=== PATIENT | male | born 1985 | race African-American/Black ===

== ENCOUNTER 2016-12-11 08:18 | Observation (INO) | payer SELFPAY ==
[~2016-12-11] VITALS: Ht 185.4 cm; Wt 70.0 kg
[~2016-12-11 08:18] MED LIST: AMOX875 PO; DOXY100T PO; MMW SSP
[2016-12-11 08:24] VITALS: BP 123/58; PULSE 58; RESP 22; TEMP 98.3; O2SAT 98
--- NOTE | 2016-12-11 09:59 | PD ---
HPI Chief Complaint: GI Complaint Time Seen by Provider: 09:27 Travel History International Travel<30 days: No Contact w/Intl Traveler<30days: No Traveled to known affect area: No History of Present Illness HPI 31-year-old male complains of abdominal pain chest pain with nausea vomiting diarrhea. Patient states the symptoms started last night. Patient states that he started having epigastric abdominal pain burning pain with radiation to the substernal area since last night. Patient states that the pain has been intermittent. Patient states that he has intermittent nausea vomiting diarrhea since last night also. Patient denies any headache. Patient denies any coughing congestion. Patient denies any fever chills. Patient denies any dysuria or frequency. Patient denies history of CAD. Patient has history of recurrent abdominal pain in the past. Patient states that he was seen in emergency room in the past for abdominal pain. Patient was advised to see GI specialist for follow-up however has not done so. Patient's not on any routine medications. Patient state he drinks alcohol 3 times a week. Patient denies any illicit drug abuse. On a scale of 1-10 the pain is an 8. PFSH Past Medical History Diminished Hearing: No Social History Alcohol Use: Yes (Drinks 2 days per week/liquor/2 drinks. Last drink on Sun) Tobacco Use: No Substance Use: No Allergies-Medications (Allergen,Severity, Reaction): Coded Allergies: No Known Allergies (Verified , 09/26/15) Reported Meds & Prescriptions Reported Meds & Active Scripts Active Magic Mouthwash-Diphenhy Formula (Lidocaine/Diphenhydr/Alum/Mg/Simeth) Ml 5-10 Ml SSP 5 TIMES A DAY MAGIC MOUTHWASH CONTAINS 1/3 VISCOUS LIDOCAINE, 1/3 MAALOX, AND 1/3 BENADRYL. Amoxil (Amoxicillin) 875 Mg Tab 875 Mg PO BID 10 Days Doxycycline Hyclate 100 mg (Doxycycline Hyclate) 100 Mg Tab 100 Mg PO BID Review of Systems General / Constitutional: No: Fever Eyes: No: Visual changes HENT: No: Headaches Cardiovascular: No: Chest Pain or Discomfort Respiratory: No: Shortness of Breath Gastrointestinal: Positive: Nausea, Vomiting, Diarrhea, Abdominal Pain Genitourinary: No: Dysuria Musculoskeletal: No: Pain Skin: No Rash Neurologic: No: Weakness Psychiatric: No: Depression Endocrine: No: Polydipsia Hematologic/Lymphatic: No: Easy Bruising Physical Exam Narrative GENERAL: Well-nourished, well-developed patient. SKIN: Warm and dry. HEAD: Normocephalic. EYES: No scleral icterus. No injection or drainage. NECK: Supple, trachea midline. No JVD or lymphadenopathy. CARDIOVASCULAR: Regular rate and rhythm without murmurs, gallops, or rubs. RESPIRATORY: Breath sounds equal bilaterally. No accessory muscle use. GASTROINTESTINAL: Abdomen soft, nondistended. Patient has moderate tenderness on palpation epigastric area. No rebound tenderness. No mass. MUSCULOSKELETAL: No cyanosis, or edema. BACK: Nontender without obvious deformity. No CVA tenderness. Neurologic exam normal. Data Data Last Documented VS Vital Signs Date Time Temp Pulse Resp B/P Pulse Ox O2 Delivery O2 Flow Rate FiO2 12/11/16 09:38 16 97 Room Air 12/11/16 08:24 98.3 58 123/58 Orders Complete Blood Count With Diff (12/11/16 08:27) Comprehensive Metabolic Panel (12/11/16 08:27) Urinalysis - C+S If Indicated (12/11/16 08:27) Iv Access Insert/Monitor (12/11/16 08:27) Oxygen Administration (12/11/16 08:27) Oximetry (12/11/16 08:27) Lipase (12/11/16 08:27) Electrocardiogram (12/11/16 ) Creatine Kinase (Cpk) (12/11/16 09:48) Troponin I (12/11/16 09:48) Chest, Single Ap (12/11/16 09:48) Pantoprazole Inj (Protonix Inj) (12/11/16 10:00) Al-Mag Hy-Si 40-40-4 Mg/Ml Liq (Mag-Al P (12/11/16 10:00) Svnkf-Tchpby-Wtwdzn-Pb Liq ( Liq (12/11/16 10:00) Ct Abd/Pel W Iv Contrast(Rout) (12/11/16 09:51) Morphine Inj (Morphine Inj) (12/11/16 10:00) Ondansetron Inj (Zofran Inj) (12/11/16 10:00) Sodium Chlor 0.9% 1000 Ml Inj (Ns 1000 M (12/11/16 10:00) Iohexol 350 Inj (Omnipaque 350 Inj) (12/11/16 11:07) Labs Laboratory Tests Test 12/11/16 09:30 White Blood Count 13.4 TH/MM3 Red Blood Count 5.15 MIL/MM3 Hemoglobin 15.6 GM/DL Hematocrit 46.8 % Mean Corpuscular Volume 90.8 FL Mean Corpuscular Hemoglobin 30.3 PG Mean Corpuscular Hemoglobin 33.3 % Concent Red Cell Distribution Width 13.2 % Platelet Count 134 TH/MM3 Mean Platelet Volume 9.9 FL Neutrophils (%) (Auto) 94.7 % Lymphocytes (%) (Auto) 2.8 % Monocytes (%) (Auto) 2.3 % Eosinophils (%) (Auto) 0.0 % Basophils (%) (Auto) 0.2 % Neutrophils # (Auto) 12.7 TH/MM3 Lymphocytes # (Auto) 0.4 TH/MM3 Monocytes # (Auto) 0.3 TH/MM3 Eosinophils # (Auto) 0.0 TH/MM3 Basophils # (Auto) 0.0 TH/MM3 CBC Comment DIFF FINAL Differential Comment Sodium Level 145 MEQ/L Potassium Level 4.0 MEQ/L Chloride Level 109 MEQ/L Carbon Dioxide Level 24.9 MEQ/L Anion Gap 11 MEQ/L Blood Urea Nitrogen 16 MG/DL Creatinine 1.45 MG/DL Estimat Glomerular Filtration 69 ML/MIN Rate Random Glucose 141 MG/DL Calcium Level 9.4 MG/DL Total Bilirubin 0.5 MG/DL Aspartate Amino Transf 13 U/L (AST/SGOT) Alanine Aminotransferase 19 U/L (ALT/SGPT) Alkaline Phosphatase 68 U/L Total Creatine Kinase 213 U/L Troponin I LESS THAN 0.02 NG/ML Total Protein 8.3 GM/DL Albumin 4.6 GM/DL Lipase 51 U/L [facility] Medical Decision Making Medical Screen Exam Complete: Yes Emergency Medical Condition: Yes Interpretation(s) EKG shows sinus bradycardia rate 53. Nonspecific ST-T wave change. Last Impressions Abdomen/Pelvis CT 12/11/16 0951 Draft Impressions: Service Date/Time: Sunday, December 11, 2016 11:04 - CONCLUSION: 1. Questionable wall thickening versus nondistention of transverse colon. This could be related to a colitis in the right clinical setting. 2. Otherwise unremarkable CT abdomen/pelvis. Jean Marie Enriquez MD Chest X-Ray 2/21/17 0948 Signed Impressions: Service Date/Time: Sunday, December 11, 2016 10:06 - CONCLUSION: No acute disease. Jean Marie Enriquez MD 11:33 AM. CBC WBC 13.4. Platelet 134. 94 neutrophil. Creatinine 1.45. Cardiac enzymes are normal. Differential Diagnosis Differential diagnosis including gastritis, PUD, pancreatitis, cholecystitis, colitis, UTI, pyelonephritis, nephrolithiasis, angina, [place], PE, pneumothorax. Narrative Course 31-year-old male with epigastric pain with radiation to the substernal area, nausea vomiting diarrhea. History of similar symptoms in the past. Normal saline solution 1 L IV bolus. Protonix 40 mg IV. Maalox 30 cc by mouth. 10 cc by mouth. Morphine 2 mg IV. Zofran 4 mg IV. Levaquin 750 mg IV. Flagyl 500 mg IV. Diagnosis Primary Impression: Colitis Additional Impression: Renal insufficiency Quinton Spann MD Dec 11, 2016 09:59
[2016-12-11] MEDS ORDERED: ALUMINUM/MAGNESIUM/SIMETH 30 ML CUP PO ONE (10:00)
[2016-12-11] MEDS ORDERED: SODIUM CHLOR 0.9% 1000 ML INJ 1,000 ML IV ONE (10:00)
[2016-12-11] MEDS ORDERED: PANTOPRAZOLE SODIUM 40 MG VIAL IV PUSH ONE (10:00)
[2016-12-11] MEDS ORDERED: ONDANSETRON HCL 4 MG/2 ML VIAL IV PUSH ONE (10:00)
[2016-12-11] MEDS ORDERED: MORPHINE SULFATE 4 MG/ML INJ IV PUSH ONE (10:00)
[2016-12-11] MEDS ORDERED: ATROPINE/SCOPOLAM/HYOSCYAM/PB ELIXIR 10 ML CUP PO ONE (10:00)
[2016-12-11 10:11] LABS: AUTOMATED NEUTROPHIL # 12.7 TH/MM3 (1.8-7.7); BASOPHIL % 0.2 % (0.0-2.0); HEMATOCRIT 46.8 % (39.0-51.0); HEMO FLAGS DIFF FINAL; LYMPH % 2.8 % (9.0-44.0); LYMPHOCYTE # 0.4 TH/MM3 (1.0-4.8); MEAN CELL VOLUME 90.8 FL (80.0-100.0); MEAN CORPUSCULAR HEMOGLOBIN 30.3 PG (27.0-34.0); MEAN CORPUSCULAR HGB CONC 33.3 % (32.0-36.0); MONO % 2.3 % (0.0-8.0); NEUT % 94.7 % (16.0-70.0); PLATELET COUNT 134 TH/MM3 (150-450); RED BLOOD COUNT 5.15 MIL/MM3 (4.50-5.90); RED CELL DISTRIBUTION WIDTH 13.2 % (11.6-17.2); WHITE BLOOD COUNT 13.4 TH/MM3 (4.0-11.0)
[2016-12-11 10:27] LABS: ALT (GPT) 19 U/L (12-78); ANION GAP 11 MEQ/L (5-15); AST (GOT) 13 U/L (15-37); BICARBONATE 24.9 MEQ/L (21.0-32.0); BLOOD UREA NITROGEN 16 MG/DL (7-18); CHLORIDE 109 MEQ/L (98-107); GLOMERULAR FILTRATION RATE 69 ML/MIN (>89); SODIUM (NA) 145 MEQ/L (136-145)
--- NOTE | 2016-12-11 10:27 | RADRPT ---
EXAM DATE/TIME: 12/11/2016 10:06 [facility] COMPARISON: CHEST SINGLE AP, January 23, 2013, 14:24. INDICATIONS : Chest pain. Vomiting. MEDICAL HISTORY : None. SURGICAL HISTORY : None. ENCOUNTER: Initial ACUITY: 1 day PAIN SCORE: 10/10 LOCATION: Bilateral chest FINDINGS: A single view of the chest demonstrates the lungs to be symmetrically aerated without evidence of mas s, infiltrate or effusion. The cardiomediastinal contours are unremarkable. Osseous structures are intact. CONCLUSION: No acute disease. Jean Marie Enriquez MD on December 11, 2016 at 10:25 Board Certified Radiologist. This report was verified electronically.
[2016-12-11 10:30] LABS: ALKALINE PHOSPHATASE 68 U/L (45-117); CREATINE KINASE 213 U/L (39-308); TOTAL BILIRUBIN ADULT 0.5 MG/DL (0.2-1.0)
[2016-12-11] MEDS ORDERED: IOHEXOL 350 MG/ML 10 ML VIAL (for RAD DIAG) IV ONE (11:07)
--- NOTE | 2016-12-11 11:22 | RADRPT ---
EXAM DATE/TIME: 12/11/2016 11:04 [facility] COMPARISON: No previous studies available for comparison. INDICATIONS : Epigastric pain with nausea and vomiting. IV CONTRAST: 92 cc Omnipaque 350 (iohexol) IV ORAL CONTRAST: No oral contrast ingested. RADIATION DOSE: 4.56 CTDIvol (mGy) MEDICAL HISTORY : None SURGICAL HISTORY : None. ENCOUNTER: Initial ACUITY: 1 day PAIN SCALE: 5/10 LOCATION: Bilateral upper quadrant TECHNIQUE: Volumetric scanning of the abdomen and pelvis was performed. Using automated exposure control and ad justment of the mA and/or kV according to patient size, radiation dose was kept as low as reasonably achievable to obtain optimal diagnostic quality images. FINDINGS: LOWER LUNGS: The visualized lower lungs are clear. LIVER: Homogeneous density without lesion. There is no dilation of the biliary tree. No calcified gallston es. SPLEEN: Normal size without lesion. PANCREAS: Within normal limits. KIDNEYS: Normal in size and shape. There is no mass, stone or hydronephrosis. ADRENAL GLANDS: Within normal limits. VASCULAR: There is no aortic aneurysm. BOWEL/MESENTERY: Questionable wall thickening versus nondistended transverse colon.. There is no free intraperitoneal air or fluid. ABDOMINAL WALL: Within normal limits. RETROPERITONEUM: There is no lymphadenopathy. BLADDER: No wall thickening or mass. REPRODUCTIVE: Within normal limits. INGUINAL: There is no lymphadenopathy or hernia. MUSCULOSKELETAL: Within normal limits for patient age. CONCLUSION: 1. Questionable wall thickening versus nondistention of transverse colon. This could be related to a colitis in the right clinical setting. 2. Otherwise unremarkable CT abdomen/pelvis. Jean Marie Enriquez MD on December 11, 2016 at 11:15 Board Certified Radiologist. This report was verified electronically.
[2016-12-11] MEDS ORDERED: metroNIDAZOLE 500 MG INJ 100 ML IV ONE (11:45)
[2016-12-11] MEDS ORDERED: LEVOFLOXACIN 750 MG PREMIX INJ 150 ML IV ONE (11:45)
--- NOTE | 2016-12-11 11:56 | HHI.HP ---
HPI Service Family Medicine Primary Care Physician No Primary Care Physician Admission Diagnosis colitis. Renal insufficiency. Diagnoses: International Travel<30 Days: No Contact w/Intl Traveler<30days: No Known Affected Area: No History of Present Illness Patient is a 31-year-old male with no significant past medical history that presents to the [facility] ED with a 1 day history of nausea, vomiting, diarrhea, and abdominal pain. His last meal was grilled chicken nachos which he ate around 2-3 PM yesterday 12/10. The patient denies eating any strange foods or foods that he has not eaten before. He describes the stomach pain as 8-10/10 sharp, intermittent, pain located in his mid-abdomen. He also endorses tightness across his mid chest. The patient vomited up to 20 times yesterday nonbloody, green, sometimes clear with small amount of mucus and had 10-15 episodes of diarrhea which she described as green, and nonbloody. He also had chills, sweats, runny nose but denies headache, fever, dysuria, cough. He denies recent international travel but this was in [place] and returned on Saturday night. He states that he drank bottled water most of the time. He lives with his brother and does not have any sick contacts, no pets. He has not had a flu shot. (Jodie Pratt MD R1) Review of Systems Constitutional: COMPLAINS OF: Chills, DENIES: Fever Ears, nose, mouth, throat: COMPLAINS OF: Running Nose Respiratory: COMPLAINS OF: Shortness of breath, DENIES: Cough Cardiovascular: COMPLAINS OF: Chest pain (tightness), DENIES: Lower Extremity Edema Gastrointestinal: COMPLAINS OF: Abdominal pain, Diarrhea, Nausea, Vomiting, DENIES: Bloody stools Genitourinary: DENIES: Urinary frequency, Dysuria Musculoskeletal: DENIES: Muscle aches Integumentary: DENIES: Rash Neurologic: DENIES: Headache (Jodie Pratt MD R1) Past Family Social History Past Medical History None Past Surgical History None Reported Medications None (Jodie Pratt MD R1) Allergies: Coded Allergies: No Known Allergies (Verified , 09/26/15) Family History Sister has IBS Mom's sisters have HTN Social History -Lives with brother, no recent sick contacts, no pets -Smokes half pack per day for 18 years -Drinks a cup of Vodka twice a week -Smokes marijuana daily (Eko,Jodie U R1) Physical Exam Vital Signs Vital Signs Date Time Temp Pulse Resp B/P Pulse Ox O2 Delivery O2 Flow Rate FiO2 12/11/16 09:38 16 97 Room Air 12/11/16 08:24 98.3 58 22 123/58 98 Physical Exam GENERAL: This is a well-nourished, well-developed patient, appears uncomfortable SKIN: No rashes, ecchymoses or lesions. Cool and dry. HEAD: Atraumatic. Normocephalic. No temporal or scalp tenderness. EYES: Pupils equal round and reactive. Extraocular motions intact. No scleral icterus. No injection or drainage. ENT: Gold-plated teeth. Nose without bleeding, purulent drainage or septal hematoma. White coating on lips. Dry mucous membranes. Throat without erythema, tonsillar hypertrophy or exudate. Uvula midline. Airway patent. NECK: Trachea midline. No JVD or lymphadenopathy. Supple, nontender, no meningeal signs. CARDIOVASCULAR: Bradycardic rate and rhythm without murmurs, gallops, or rubs. RESPIRATORY: Clear to auscultation. Breath sounds equal bilaterally. No wheezes , rales, or rhonchi. GASTROINTESTINAL: Abdomen soft, non-tender to palpation, nondistended. No hepato -splenomegaly, or palpable masses. No guarding. MUSCULOSKELETAL: Extremities without clubbing, cyanosis, or edema. No joint tenderness, effusion, or edema noted. No calf tenderness. . NEUROLOGICAL: Sleepy but arousable. Cranial nerves grossly intact. Motor and sensory grossly within normal limits. Five out of 5 muscle strength in all muscle groups. Normal speech. Laboratory Laboratory Tests Test 12/11/16 09:30 White Blood Count 13.4 Red Blood Count 5.15 Hemoglobin 15.6 Hematocrit 46.8 Mean Corpuscular Volume 90.8 Mean Corpuscular Hemoglobin 30.3 Mean Corpuscular Hemoglobin 33.3 Concent Red Cell Distribution Width 13.2 Platelet Count 134 Mean Platelet Volume 9.9 Neutrophils (%) (Auto) 94.7 Lymphocytes (%) (Auto) 2.8 Monocytes (%) (Auto) 2.3 Eosinophils (%) (Auto) 0.0 Basophils (%) (Auto) 0.2 Neutrophils # (Auto) 12.7 Lymphocytes # (Auto) 0.4 Monocytes # (Auto) 0.3 Eosinophils # (Auto) 0.0 Basophils # (Auto) 0.0 CBC Comment DIFF FINAL Differential Comment Sodium Level 145 Potassium Level 4.0 Chloride Level 109 Carbon Dioxide Level 24.9 Anion Gap 11 Blood Urea Nitrogen 16 Creatinine 1.45 Estimat Glomerular Filtration 69 Rate Random Glucose 141 Calcium Level 9.4 Total Bilirubin 0.5 Aspartate Amino Transf 13 (AST/SGOT) Alanine Aminotransferase 19 (ALT/SGPT) Alkaline Phosphatase 68 Total Creatine Kinase 213 Troponin I LESS THAN 0.02 Total Protein 8.3 Albumin 4.6 Lipase 51 (Jodie Pratt MD R1) Result Diagram: 12/11/1692912/11/16929 Imaging Last Impressions Abdomen/Pelvis CT 12/11/16950 Signed Impressions: Service Date/Time: Sunday, December 11, 2016 11:04 - CONCLUSION: 1. Questionable wall thickening versus nondistention of transverse colon. This could be related to a colitis in the right clinical setting. 2. Otherwise unremarkable CT abdomen/pelvis. Jean Marie Enriquez MD - Chest X-Ray 12/11/16947 Signed Impressions: Service Date/Time: Sunday, December 11, 2016 10:06 - CONCLUSION: No acute disease. Jean Marie Enriquez MD Course In the ED, the patient received 1 L normal saline IV bolus, Protonix 40 mg IV, Maalox 30 mL by mouth, 10 mL by mouth, morphine 2 mg IV, Zofran 4 mg IV. He was also treated with one dose of Levaquin 70 mg IV and Flagyl 500 mg IV. Chest x-ray and CT abdomen and pelvis with contrast were performed. (Jodie Pratt MD R1) Assessment and Plan Assessment and Plan 31-year-old male with no significant past medical history presents to the [facility] ED with recurrent abdominal pain, nausea, vomiting, and diarrhea of one day duration. Differential diagnosis includes gastroenteritis, pancreatitis, cholecystitis, UTI, peptic ulcer disease, ACS, and inflammatory bowel disease. CT abdomen and pelvis performed in the ED shows questionable wall thickening versus nondistention of transverse colon, which is suspicious for colitis. The patient will be admitted to the family medicine team on observation for rehydration and treatment with antibiotics. Code Status Full code Discussed Condition With Seen and examined with Dr. De Leon, PGY 2. Will discuss with Dr. Tierney. (Jodie Pratt MD R1) Problem List: (1) Gastroenteritis and colitis Status: Acute Plan: -Patient reports abdominal pain of one day duration with multiple episodes of nausea vomiting and diarrhea -CT abdomen/pelvis shows questionable wall thickening of the transverse colon -GI consulted - appreciate recommendations -WBC 13.4 on admission with 94.7% neutrophils -Electrolytes within normal limits except for elevated chloride of 109 -Lipase within normal limits at 51, most likely not pancreatitis -Chest x-ray within normal limits -ACS rule out with troponin <0.02 and EKG showing sinus bradycardia, possible LVH, with nonspecific ST-T wave abnormality -Will repeat troponin 1 and EKG 1 in 6 hours -Urinalysis and reflex cultures pending -Stool studies pending -Celiac antibodies, DEEJAY pending -Ciprofloxacin 400 mg IV Q4 hours, received one dose - DAY 1, started on -Flagyl 500 mg IV Q6 hours, received one dose - DAY 1, started on 12/11/16 -Protonix 40 mg by mouth daily -Mackenzie-Colace one tablet twice a day scheduled -Tylenol 650 mg Q4h PRN pain 1-10 of fever greater than 101F -Pain control with morphine 2 mg IV push every 3 hours when necessary -Zofran 4 mg IV Q6h PRN nausea/vomiting -OOB as tolerated -Monitor I's and O's every shift -Vital signs every 4 hours (2) Renal insufficiency Status: Acute Plan: On admission creatinine elevated to 1.45 -Baseline creatinine unknown -SAHRA likely from dehydration due to multiple episodes of vomiting and diarrhea -Continue fluids as detailed below - expected to improve with fluid rehydration -Urinalysis pending -If renal function does not improve with fluids, consider renal ultrasound and nephrology consult (3) FEN/DVT PPX/GI PPX Status: Acute Plan: Fluids: NS @130 mls/hr Electrolytes: Will monitor and replace as needed Nutrition: Clear liquid diet; nothing by mouth at midnight pending GI DVT Prophylaxis: Bilateral SCDs GI Prophylaxis: Protonix 40 mg by mouth daily AM Labs: CBC, CMP (Jodie Pratt MD R1) Jodie Pratt MD R1 Dec 11, 2016 11:56 Rocio Tierney MD Dec 12, 2016 15:09
[2016-12-11 12:18] VITALS: BP 106/52; PULSE 50; RESP 24; O2SAT 96
[2016-12-11] MEDS ORDERED: ACETAMINOPHEN 325 MG TAB PO PRN (12:30)
[2016-12-11] MEDS ORDERED: NALOXONE HCL 0.4 MG/ML AMP IV PRN (12:30)
[2016-12-11] MEDS ORDERED: SODIUM CHLORIDE 0.9% FLUSH 5 ML FLUSH FLUSH PRN (12:30)
[2016-12-11] MEDS: ONDANSETRON HCL 4 MG/2 ML VIAL IVP PRN ×2 (13:59→18:00)
[2016-12-11] MEDS: SODIUM CHLOR 0.9% 1000 ML INJ 1,000 ML IV SCH ×2 (15:12→23:20)
[2016-12-11 15:41] VITALS: BP 115/55; PULSE 65; RESP 16; TEMP 98; O2SAT 98
--- NOTE | 2016-12-11 16:11 | PD.CONS ---
HPI History of Present Illness This is a 31 year old AA male with out significant past medical history who presents to the ED with one day history of severe symptoms of diarrhea, intractable vomiting, and abd pain. states that he started having epigastric/ mid abdominal pain burning pain with radiation to the substernal area since last night, 8-07/30 sharp, intermittent. He reports associated heart burn. Patient reports about 20 episodes of diarrhea with some mucous at times and vomiting, no hematochezia or hematemesis, the emesis, is green, sometimes clear liquid. Patient denies sick contact, suspicious foods, or internation travel, but he was in [place] and returned on Saturday night. His last meal was grilled chicken and nachos which he ate yesterday afternoon. The patient reports chills, and sweats. He had similar episode in the past and was advised to f/u with GI but he never did. States episodes usually last for few days. He denies family history of colon cancer or IBD. He drinks twice a week, smokes marijuana daily . CT done and that revealed Questionable wall thickening versus nondistention of transverse colon. This could be related to a colitis in the right clinical setting. Stool studies ordered and pending, was started on Cipro and Flagyl. patient never had EGD/colonoscopy PFSH Past Medical History None Past Surgical History None Coded Allergies: No Known Allergies (Verified , 09/26/15) Medications Current Medications Medications (Trade) Dose Ordered Sig/Ninoska Route Start Time Stop Time Status Last Admin (NS 1000 ml Inj) 1,000 ml @ 130 mls/hr Q7H42M IV 12/11/16 12:29 12/11/16 15:12 (NS Flush) 2 ml UNSCH PRN FLUSH 12/11/16 12:30 (NS Flush) 2 ml BID FLUSH 12/11/16 21:00 (Tylenol) 650 mg Q4H PRN PO 12/11/16 12:30 (Zofran Inj) 4 mg Q6H PRN IVP 12/11/16 12:30 12/11/16 13:59 Naloxone HCl 0.4 mg 0.4 mg UNSCH PRN IV 12/11/16 12:30 Ciprofloxacin/ Dextrose 200 ml @ 200 mls/hr Q12H IV 12/11/16 22:00 (Flagyl 500 Mg Inj) 100 ml @ 100 mls/hr Q6H IV 12/11/16 18:00 (Morphine Inj) 2 mg Q3H PRN IV PUSH 12/11/16 12:45 (Protonix Inj) 40 mg Q24H IV PUSH 12/12/16 10:00 Family History No family history of colon cancer, or IBD Sister has IBS Social History -Smokes half pack per day for 18 years -Drinks a cup of Vodka twice a week -Smokes marijuana daily Review of Systems Constitutional: COMPLAINS OF: Diaphoretic episodes, Chills, DENIES: Fever, Night Sweats Endocrine: DENIES: Polyuria Eyes: DENIES: Double Vision Ears, nose, mouth, throat: DENIES: Hoarseness Respiratory: DENIES: Shortness of breath Cardiovascular: DENIES: Lower Extremity Edema Gastrointestinal: COMPLAINS OF: Abdominal pain, Diarrhea, Nausea, Vomiting, Heartburn, DENIES: Black stools, Bloody stools, Constipation, Difficulty Swallowing, Anorexia, Odynophagia, Swelling of Abdomen, Hematemesis Genitourinary: DENIES: Hematuria Musculoskeletal: DENIES: Neck pain Integumentary: DENIES: Jaundice Hematologic/lymphatic: DENIES: Bruising Immunologic/allergic: DENIES: Eczema Neurologic: DENIES: Abnormal gait Psychiatric: DENIES: Anxiety GI Exam Vitals I&O Vital Signs Date Time Temp Pulse Resp B/P Pulse Ox O2 Delivery O2 Flow Rate FiO2 12/11/16 15:41 98.0 65 16 115/55 98 12/11/16 12:18 50 24 106/52 96 Room Air 12/11/16 12:16 24 96 Room Air 12/11/16 09:38 16 97 Room Air 12/11/16 08:24 98.3 58 22 123/58 98 Imaging Last Impressions Abdomen/Pelvis CT 12/11/16 0951 Signed Impressions: Service Date/Time: Sunday, December 11, 2016 11:04 - CONCLUSION: 1. Questionable wall thickening versus nondistention of transverse colon. This could be related to a colitis in the right clinical setting. 2. Otherwise unremarkable CT abdomen/pelvis. Jean Marie Enriquez MD Chest X-Ray 12/11/16 0948 Signed Impressions: Service Date/Time: Sunday, December 11, 2016 10:06 - CONCLUSION: No acute disease. Jean Marie Enriquez MD Laboratory Test 12/11/16 09:30 White Blood Count 13.4 TH/MM3 Red Blood Count 5.15 MIL/MM3 Hemoglobin 15.6 GM/DL Hematocrit 46.8 % Mean Corpuscular Volume 90.8 FL Mean Corpuscular Hemoglobin 30.3 PG Mean Corpuscular Hemoglobin 33.3 % Concent Red Cell Distribution Width 13.2 % Platelet Count 134 TH/MM3 Mean Platelet Volume 9.9 FL Neutrophils (%) (Auto) 94.7 % Lymphocytes (%) (Auto) 2.8 % Monocytes (%) (Auto) 2.3 % Eosinophils (%) (Auto) 0.0 % Basophils (%) (Auto) 0.2 % Neutrophils # (Auto) 12.7 TH/MM3 Lymphocytes # (Auto) 0.4 TH/MM3 Monocytes # (Auto) 0.3 TH/MM3 Eosinophils # (Auto) 0.0 TH/MM3 Basophils # (Auto) 0.0 TH/MM3 CBC Comment DIFF FINAL Differential Comment Sodium Level 145 MEQ/L Potassium Level 4.0 MEQ/L Chloride Level 109 MEQ/L Carbon Dioxide Level 24.9 MEQ/L Anion Gap 11 MEQ/L Blood Urea Nitrogen 16 MG/DL Creatinine 1.45 MG/DL Estimat Glomerular Filtration 69 ML/MIN Rate Random Glucose 141 MG/DL Calcium Level 9.4 MG/DL Total Bilirubin 0.5 MG/DL Aspartate Amino Transf 13 U/L (AST/SGOT) Alanine Aminotransferase 19 U/L (ALT/SGPT) Alkaline Phosphatase 68 U/L Total Creatine Kinase 213 U/L Troponin I LESS THAN 0.02 NG/ML Total Protein 8.3 GM/DL Albumin 4.6 GM/DL Lipase 51 U/L Physical Examination HEENT: normocephalic; atraumatic; no jaundice. NECK: Neck is supple, no JVD, no lymphadenopathy. CHEST: Chest is clear to auscultation and percussion. CARDIAC: Regular rate and rhythm with no murmur gallop or rubs. ABDOMEN: Soft, nondistended, diffused tenderness ; no hepatosplenomegaly; bowel sounds are present in all four quadrants. EXTREMITIES: No clubbing, cyanosis, or edema. SKIN: Normal; no rash; no jaundice. CLINICAL RN LIAISON: No focal deficits; alert and oriented times three. Assessment and Plan Plan - Intractable nausea/vomiting, abd pain and diarrhea X one day- Ct suggesting colitis, no previous EGD/colonoscopy, stools studies pending, LFTs, lipase normal, differential diagnosis includes IBD, gastritis, infectious colitis, but other etiology can't be excluded Started on Cipro and Flagyl and PPI, no more diarrhea or vomiting since arrival - Leukocytosis- WBC 13.4, afebrile, abx - Marijuana use, could have a contribution - acute renal failure- dehydration Plan: - Clear liquids - EGD/colonoscopy in am - Golytely today - Await stool studies - Cont Cipro and Flagyl - Cont PPI - Marijuana cessation - Further recommendation to follow based on results above - Patient seen and examined by Dr. Malhotra and myself and this note is written on his behalf. Edda Mancuso Dec 11, 2016 16:11
[2016-12-11] MEDS ORDERED: PEG (High)/E-LYTE SOLN 4000 ML BTL PO ONE (16:15)
[2016-12-11] MEDS: metroNIDAZOLE 500 MG INJ 100 ML IV SCH ×2 (17:11→23:21)
--- NOTE | 2016-12-11 17:16 | HHI.FPPN ---
Subjective Subjective Patient seen and examined. Case reviewed and discussed Please refer to resident H&P for further details regarding HPI, ROS, PMH, SurgHx , FH and SocHx In summary, patient is a 31yoM presenting with intractable n/v/d. He reports onset was last night. Vomiting and diarrhea started at the same time. Patient reports about 20 episodes of both. No blood. Hospital Objective Objective Last Impressions Abdomen/Pelvis CT 12/11/16 0951 Signed Impressions: Service Date/Time: Sunday, December 11, 2016 11:04 - CONCLUSION: 1. Questionable wall thickening versus nondistention of transverse colon. This could be related to a colitis in the right clinical setting. 2. Otherwise unremarkable CT abdomen/pelvis. Jean Marie Enriquez MD Chest X-Ray 12/11/1648 Signed Impressions: Service Date/Time: Sunday, December 11, 2016 10:06 - CONCLUSION: No acute disease. Jean Marie Enriquez MD Laboratory Tests - Abnormals Test 12/11/16 09:30 White Blood Count 13.4 TH/MM3 Platelet Count 134 TH/MM3 Neutrophils (%) (Auto) 94.7 % Lymphocytes (%) (Auto) 2.8 % Neutrophils # (Auto) 12.7 TH/MM3 Lymphocytes # (Auto) 0.4 TH/MM3 Chloride Level 109 MEQ/L Creatinine 1.45 MG/DL Estimat Glomerular Filtration 69 ML/MIN Rate Random Glucose 141 MG/DL Aspartate Amino Transf 13 U/L (AST/SGOT) Troponin I LESS THAN 0.02 NG/ML Total Protein 8.3 GM/DL Lipase 51 U/L Vital Signs 12/11/16 12/11/16 12/11/16 12/11/16 08:24 09:38 12:16 12:18 Temp 98.3 Pulse 58 50 Resp 22 16 24 24 B/P 123/58 106/52 Pulse Ox 98 97 96 96 O2 Delivery Room Air Room Air Room Air 12/11/16 15:41 Temp 98.0 Pulse 65 Resp 16 B/P 115/55 Pulse Ox 98 Physical exam GENERAL: AAM, NAD, resting in bed. SKIN: Warm and dry. No rashes HEAD: Normocephalic. AT EYES: No scleral icterus. No injection or drainage. NECK: Supple, trachea midline. No JVD or lymphadenopathy. CARDIOVASCULAR: Regular rate and rhythm without murmurs, gallops, or rubs. RESPIRATORY: Breath sounds equal bilaterally. No accessory muscle use. GASTROINTESTINAL: Abdomen soft, non-tender, nondistended. No rebound, guarding. Normal active BS MUSCULOSKELETAL: No cyanosis, or edema. No calf tenderness. BACK: Nontender without obvious deformity. No CVA tenderness. NEURO: Awake and alert. Normal speech. CN in tact. Assessment Assessment 31yoM admitted with: Intractable diarrhea, nausea, vomiting URI symptoms Leukocytosis Acute renal insufficiency PLAN PLAN IVF Stool studies CDIFF DEEJAY Celiac antibodies Zofran GI consultation Patient seen and examined. Case reviewed and discussed Agree with plan of care as discussed with me and documented in the resident note. Rocio Tierney MD Dec 11, 2016 17:16
[2016-12-11] MEDS: MORPHINE SULFATE 4 MG/ML INJ IV PUSH PRN ×3 (18:00→21:00)
[2016-12-11] MEDS: SODIUM CHLORIDE 0.9% FLUSH 5 ML FLUSH FLUSH SCH (21:00)
[2016-12-11 21:02] VITALS: BP 105/51; PULSE 52; RESP 18; TEMP 98.8; O2SAT 98
[2016-12-11 21:13] VITALS: BP 162/95; PULSE 87; RESP 18; TEMP 98.4; O2SAT 98
[2016-12-11] MEDS: CIPROFLOXACIN 400 MG PREMIX 200 ML IV SCH (21:38)
[2016-12-12] VITALS: BP 128/68; PULSE 68; RESP 18; TEMP 97.8; O2SAT 99
[2016-12-12] MEDS: SODIUM CHLOR 0.9% 1000 ML INJ 1,000 ML IV SCH ×3 (03:53→19:17)
[2016-12-12 04:52] VITALS: BP 116/60; PULSE 87; RESP 18; TEMP 98.7; O2SAT 98
[2016-12-12] MEDS: ONDANSETRON HCL 4 MG/2 ML VIAL IVP PRN (05:18)
[2016-12-12] MEDS: metroNIDAZOLE 500 MG INJ 100 ML IV SCH ×4 (05:18→23:41)
[2016-12-12 05:25] LABS: AUTOMATED NEUTROPHIL # 10.3 TH/MM3 (1.8-7.7); BASOPHIL % 0.2 % (0.0-2.0); EOSINOPHIL % 0.1 % (0.0-4.0); HEMATOCRIT 42.8 % (39.0-51.0); HEMO FLAGS DIFF FINAL; LYMPH % 8.4 % (9.0-44.0); MEAN CELL VOLUME 89.8 FL (80.0-100.0); MEAN CORPUSCULAR HEMOGLOBIN 30.7 PG (27.0-34.0); MEAN CORPUSCULAR HGB CONC 34.2 % (32.0-36.0); MONO % 5.4 % (0.0-8.0); NEUT % 85.9 % (16.0-70.0); PLATELET COUNT 132 TH/MM3 (150-450); RED BLOOD COUNT 4.77 MIL/MM3 (4.50-5.90); RED CELL DISTRIBUTION WIDTH 13.2 % (11.6-17.2)
[2016-12-12 05:57] LABS: BICARBONATE 28.9 MEQ/L (21.0-32.0); POTASSIUM 3.7 MEQ/L (3.5-5.1)
[2016-12-12 07:44] VITALS: BP 118/68; PULSE 50; RESP 18; TEMP 97.7; O2SAT 99
[2016-12-12] MEDS ORDERED: PANTOPRAZOLE SOD 40 MG DELAYED RELEASE TAB PO SCH (09:00)
[2016-12-12] MEDS ORDERED: DOCUSATE SODIUM 50 MG/SENNA 8.6 MG TAB PO SCH (09:00)
[2016-12-12] MEDS: SODIUM CHLORIDE 0.9% FLUSH 5 ML FLUSH FLUSH SCH ×2 (09:00→20:37)
[2016-12-12] MEDS: PANTOPRAZOLE SODIUM 40 MG VIAL IV PUSH SCH (09:35)
[2016-12-12] MEDS: CIPROFLOXACIN 400 MG PREMIX 200 ML IV SCH ×2 (09:35→21:20)
[2016-12-12] MEDS: MORPHINE SULFATE 4 MG/ML INJ IV PUSH PRN ×3 (09:42→21:41)
[2016-12-12] MEDS ORDERED: MAGNESIUM CITRATE SOLN 300 ML BTL PO ONE (09:45)
--- NOTE | 2016-12-12 12:59 | HHI.FPPN ---
Subjective Remarks Patient states that he feels 40% better today. He had 4 episodes of vomiting and 4 episodes of diarrhea overnight and in the morning. His abdominal pain is now a 5/10. (Jodie Pratt MD R1) Objective Vitals Vital Signs Date Time Temp Pulse Resp B/P Pulse Ox O2 Delivery O2 Flow Rate FiO2 12/12/16 09:47 16 12/12/16 07:44 97.7 50 18 118/68 99 12/12/16 04:52 98.7 87 18 116/60 98 12/12/16 00:00 97.8 68 18 128/68 99 12/11/16 21:13 98.4 87 18 162/95 98 12/11/16 21:02 98.8 52 18 105/51 98 12/11/16 15:41 98.0 65 16 115/55 98 I/O 12/11/16 12/11/16 12/11/16 12/12/16 12/12/16 12/12/16 07:00 15:00 23:00 07:00 15:00 23:00 Intake Total 480 ml Balance 480 ml Intake Oral 480 ml # Voids 2 # Bowel Movements 1 (Jodie Pratt MD R1) Result Diagram: 12/12/16 0455 12/12/16 0455 Imaging Last Impressions Abdomen/Pelvis CT 12/11/16950 Signed Impressions: Service Date/Time: Sunday, December 11, 2016 11:04 - CONCLUSION: 1. Questionable wall thickening versus nondistention of transverse colon. This could be related to a colitis in the right clinical setting. 2. Otherwise unremarkable CT abdomen/pelvis. Jean Marie Enriquez MD Chest X-Ray 12/11/1625 Signed Impressions: Service Date/Time: Sunday, December 11, 2016 10:06 - CONCLUSION: No acute disease. Jean Marie Enriquez MD Objective Remarks GENERAL: This is a well-nourished, well-developed patient, appears uncomfortable SKIN: No rashes, ecchymoses or lesions. Cool and dry. HEAD: Atraumatic. Normocephalic. No temporal or scalp tenderness. EYES: Pupils equal round and reactive. Extraocular motions intact. No scleral icterus. No injection or drainage. ENT: Gold-plated teeth. Nose without bleeding, purulent drainage or septal hematoma. Throat without erythema, tonsillar hypertrophy or exudate. Uvula midline. Airway patent. NECK: Trachea midline. No JVD or lymphadenopathy. Supple, nontender, no meningeal signs. CARDIOVASCULAR: Bradycardic rate and rhythm without murmurs, gallops, or rubs. RESPIRATORY: Clear to auscultation. Breath sounds equal bilaterally. No wheezes , rales, or rhonchi. GASTROINTESTINAL: Abdomen soft, non-tender to palpation, nondistended. No hepato -splenomegaly, or palpable masses. No guarding. MUSCULOSKELETAL: Extremities without clubbing, cyanosis, or edema. No joint tenderness, effusion, or edema noted. No calf tenderness. . NEUROLOGICAL: Cranial nerves grossly intact. Motor and sensory grossly within normal limits. Five out of 5 muscle strength in all muscle groups. Normal speech. (Jodie Pratt MD R1) A/P Assessment and Plan 31-year-old male with no significant past medical history presents to the [place] ED with recurrent abdominal pain, nausea, vomiting, and diarrhea of one day duration. CT abdomen and pelvis performed in the ED shows questionable wall thickening versus nondistention of transverse colon, which is suspicious for colitis. The patient was admitted to the family medicine team on observation for rehydration and treatment with antibiotics. Gastroenterology was consulted and a colonoscopy was performed on 12/12 which showed normal colon mucosa. Random biopsy samples were taken for pathology evaluation. Seen and examined with Dr. Mendieta and Dr. Tierney (Jodie Pratt MD R1) Attending Attestation Patient seen and examined. Case reviewed and discussed Agree with plan of care as discussed with me and documented in the resident note. (Rocio Tierney MD) Problem List: (1) Gastroenteritis and colitis Status: Acute Plan: -Patient reports abdominal pain of one day duration with multiple episodes of nausea vomiting and diarrhea -CT abdomen/pelvis shows questionable wall thickening of the transverse colon -GI consulted -colonoscopy performed on 12/12 - normal mucosa with no abnormalities identified. Random biopsy samples were taken for pathology evaluation -WBC 13.4 on admission with 94.7% neutrophils; down to 12.0 on 12/12 -Electrolytes within normal limits except for elevated chloride of 109 -Lipase within normal limits at 51, most likely not pancreatitis -Chest x-ray within normal limits -ACS rule out with troponin <0.02 and EKG showing sinus bradycardia, possible LVH, with nonspecific ST-T wave abnormality -Troponin 1 and EKG 1 were stable -Urinalysis and reflex cultures pending -Stool studies pending -Celiac antibodies, DEEJAY pending -Ciprofloxacin 400 mg IV Q4 hours, received 2 doses - DAY 1, started on 12/11/16 -Flagyl 500 mg IV Q6 hours, received 2 doses - DAY 1, started on 12/11/16 -Protonix 40 mg by mouth daily -Mackenzie-Colace one tablet twice a day scheduled -Tylenol 650 mg Q4h PRN pain 1-10 of fever greater than 101F -Pain control with morphine 2 mg IV push every 3 hours when necessary -Zofran 4 mg IV Q6h PRN nausea/vomiting -OOB as tolerated -Monitor I's and O's every shift -Vital signs every 4 hours (2) Renal insufficiency Status: Resolved Plan: On admission creatinine elevated to 1.45; decreased 1.36 -Baseline creatinine unknown -SAHRA likely from dehydration due to multiple episodes of vomiting and diarrhea -Continue fluids as detailed below - expected to improve with fluid rehydration -Urinalysis pending -If renal function does not improve with fluids, consider renal ultrasound and nephrology consult (3) FEN/DVT PPX/GI PPX Status: Acute Plan: Fluids: NS @130 mls/hr Electrolytes: Will monitor and replace as needed Nutrition: Clear liquid diet DVT Prophylaxis: Bilateral SCDs GI Prophylaxis: Protonix 40 mg by mouth daily AM Labs: CBC, CMP (Jodie Pratt MD R1) Jodie Pratt MD R1 Dec 12, 2016 12:59 Rocio Tierney MD Dec 21, 2016 12:04
[2016-12-12 15:36] VITALS: BP 103/60; PULSE 56; RESP 20; O2SAT 95
[2016-12-12] MEDS ORDERED: PROPOFOL 200 MG/20 ML AMP IV ONE (16:47)
[2016-12-12 19:15] VITALS: BP 106/66; PULSE 68; RESP 20; TEMP 99.2; O2SAT 99
--- NOTE | 2016-12-12 21:46 | HHI.FPPN ---
Addendum to progress note ADDENDUM Reason for addendum: Additonal documentation Additional information Night Float Addendum Subjective/Objective Called nurse 9:30pm to f/u pending U/A, C. diff, and stool studies (enteric pathogen, stool WBCs) ordered yesterday evening. Nurse aware of these outstanding labs- waiting for pt to void and stool. Passed small amount stool after Alyssa Prep and soap diana enema x2, but sample contaminated by prep solution/soap. Pt not compliant with instructions to void in bedside container- has used toilet repeatedly Assement/Plan 31 year-old male with admission for intractable nausea/vomiting/diarrhea. No diarrhea since admission. Has pending U/A, stool studies -Pt education to void in handheld specimen container- send U/A when possible -Monitor for stool- send C. diff and stool studies when possible -Considered additional laxatives, decided against in light of reported diarrhea and suspicion of little stool s/p colonoscopy prep performed yesterday WDW: Medicine day team (Ann Marie Ibrahim MD R1) Ann Marie Ibrahim MD R1 Dec 12, 2016 21:46 Rocio Tierney MD Dec 21, 2016 12:04
--- NOTE | 2016-12-12 21:56 | EKG ---
Date Performed: 12/12/2016 Time Performed: 05:10:50 PTAGE: 31 years EKG: SINUS BRADYCARDIA WITH SINUS ARRHYTHMIA NONSPECIFIC ST ELEVATION Compared to prior tracing no significant change DOCTOR: Dorota Pinedo Interpretating Date/Time 12/12/2016 21:56:12
--- NOTE | 2016-12-12 22:44 | EKG ---
Date Performed: 12/11/2016 Time Performed: 08:32:40 PTAGE: 31 years EKG: SINUS BRADYCARDIA MODERATE VOLTAGE CRITERIA FOR LVH, CONSIDER NORMAL VARIANT NONSPECIFIC ST & T-WAVE ABNORMALITY BORDERLINE ECG PREVIOUS TRACING : 01/25/2013 18.45 Compared to prior tracing no significant change DOCTOR: Dorota Pinedo Interpretating Date/Time 12/12/2016 22:43:54
--- NOTE | 2016-12-12 22:44 | EKG ---
Date Performed: 12/11/2016 Time Performed: 09:19:26 PTAGE: 31 years EKG: SINUS BRADYCARDIA MINIMAL VOLTAGE CRITERIA FOR LVH, CONSIDER NORMAL VARIANT NONSPECIFIC ST ELEVATION BORDERLINE ECG Compared to prior tracing no significant change DOCTOR: Dorota Pinedo Interpretating Date/Time 12/12/2016 22:43:13
[2016-12-13 00:06] VITALS: BP 110/65; PULSE 50; RESP 20; TEMP 98; O2SAT 100
[2016-12-13 02:14] LABS: BLOOD, URINE NEG (NEG); COMMENT (UR) CULT NOT INDICATED; CULTURE IF INDICATED CULT NOT INDICATED; GLUCOSE,URINE NEG (NEG); KETONE, URINE TRACE mg/dL (NEG); MUCUS URINE FEW /lpf (OCC); NITRITE,URINE NEG (NEG); RENAL EPITHELIAL CELLS <1 /hpf; URINE COLOR YELLOW (YELLW/STRAW)
[2016-12-13] MEDS: SODIUM CHLOR 0.9% 1000 ML INJ 1,000 ML IV SCH ×3 (02:26→18:23)
[2016-12-13] MEDS: MORPHINE SULFATE 4 MG/ML INJ IV PUSH PRN ×4 (04:03→21:53)
[2016-12-13 04:29] VITALS: BP 125/68; PULSE 52; RESP 20; TEMP 97.6; O2SAT 98
[2016-12-13] MEDS: metroNIDAZOLE 500 MG INJ 100 ML IV SCH ×3 (05:10→17:14)
[2016-12-13 08:01] LABS: AUTOMATED NEUTROPHIL # 7.4 TH/MM3 (1.8-7.7); BASOPHIL % 0.2 % (0.0-2.0); EOSINOPHIL % 0.3 % (0.0-4.0); HEMATOCRIT 39.7 % (39.0-51.0); HEMO FLAGS DIFF FINAL; LYMPH % 13.9 % (9.0-44.0); LYMPHOCYTE # 1.3 TH/MM3 (1.0-4.8); MEAN CELL VOLUME 89.6 FL (80.0-100.0); MEAN CORPUSCULAR HEMOGLOBIN 30.6 PG (27.0-34.0); MEAN CORPUSCULAR HGB CONC 34.1 % (32.0-36.0); MONO % 5.3 % (0.0-8.0); NEUT % 80.3 % (16.0-70.0); PLATELET COUNT 108 TH/MM3 (150-450); RED BLOOD COUNT 4.44 MIL/MM3 (4.50-5.90); RED CELL DISTRIBUTION WIDTH 13.1 % (11.6-17.2); WHITE BLOOD COUNT 9.2 TH/MM3 (4.0-11.0)
[2016-12-13 08:15] VITALS: BP 113/70; PULSE 48; RESP 18; TEMP 97.8; O2SAT 99
[2016-12-13 08:16] LABS: BICARBONATE 26.7 MEQ/L (21.0-32.0); POTASSIUM 3.3 MEQ/L (3.5-5.1)
--- NOTE | 2016-12-13 09:18 | HHI.FPPN ---
Subjective Remarks Patient complains of burning pain in his chest which is his major concern now. He had one episode of vomiting and one diarrheal stool this morning. (EkoJodie MD R1) Objective Vitals Vital Signs Date Time Temp Pulse Resp B/P Pulse Ox O2 Delivery O2 Flow Rate FiO2 12/13/16 08:15 97.8 48 18 113/70 99 12/13/16 04:29 97.6 52 20 125/68 98 12/13/16 04:08 12 12/13/16 00:06 98.0 50 20 110/65 100 12/12/16 19:15 99.2 68 20 106/66 99 12/12/16 15:36 56 20 103/60 95 12/12/16 14:30 56 20 109/65 100 12/12/16 14:15 98.5 50 20 91/58 100 I/O 12/12/16 12/12/16 12/12/16 12/13/16 12/13/16 12/13/16 07:00 15:00 23:00 07:00 15:00 23:00 Intake Total 200 ml 105 ml Output Total 400 ml Balance 200 ml 105 ml -400 ml IV Total 200 ml 105 ml Output Urine Total 400 ml # Voids 4 (EkoJodie MD R1) Result Diagram: 12/13/16 0649 12/13/16 0649 Objective Remarks GENERAL: This is a well-nourished, well-developed patient, lying in bed SKIN: No rashes, ecchymoses or lesions. Cool and dry. HEAD: Atraumatic. Normocephalic. No temporal or scalp tenderness. EYES: Pupils equal round and reactive. Extraocular motions intact. No scleral icterus. No injection or drainage. ENT: Gold-plated teeth. Nose without bleeding, purulent drainage or septal hematoma. Throat without erythema, tonsillar hypertrophy or exudate. Uvula midline. Airway patent. NECK: Trachea midline. No JVD or lymphadenopathy. Supple, nontender, no meningeal signs. CARDIOVASCULAR: Bradycardic rate and rhythm without murmurs, gallops, or rubs. RESPIRATORY: Clear to auscultation. Breath sounds equal bilaterally. No wheezes , rales, or rhonchi. GASTROINTESTINAL: Abdomen soft, non-tender to palpation, nondistended. No hepato -splenomegaly, or palpable masses. No guarding. MUSCULOSKELETAL: Extremities without clubbing, cyanosis, or edema. No joint tenderness, effusion, or edema noted. No calf tenderness. . NEUROLOGICAL: Cranial nerves grossly intact. Motor and sensory grossly within normal limits. Five out of 5 muscle strength in all muscle groups. Normal speech. (Jodie Pratt MD R1) A/P Assessment and Plan 31-year-old male with no significant past medical history presents to the [place] ED with recurrent abdominal pain, nausea, vomiting, and diarrhea of one day duration. CT abdomen and pelvis performed in the ED showed questionable wall thickening versus nondistention of transverse colon, which is suspicious for colitis. The patient was admitted to the family medicine team on observation for rehydration and treatment with antibiotics. Gastroenterology was consulted and an EGD/colonoscopy was performed on 12/12 which showed gastritis and normal colon mucosa. Random biopsy samples were taken for pathology evaluation, results are pending. Seen and examined with Dr. De Leon, PGY 2. Discussed with Dr. Tierney. Discharge Planning Plan to discharge tomorrow 12/14 as long as patient is tolerating by mouth intake with minimal nausea. (Jodie Pratt MD R1) Attending Attestation Patient seen and examined. Case reviewed and discussed Agree with plan of care as discussed with me and documented in the resident note. (Rocio Tierney MD) Problem List: (1) Gastroenteritis and colitis Status: Acute Plan: -Improving, patient had 1 episode of vomiting this morning and one diarrheal episode -EGD and colonoscopy were performed and biopsy samples of gastric mucosa and colon have been sent for pathology review. Results are pending -Patient complaining of burning chest pain -We will add Maalox every 6 hours when necessary -We will start sucralfate suspension by mouth 3 times a day scheduled -Continue Ciprofloxacin 400 mg IV Q4 hours, received 7 doses - DAY 2, started on 12/11/16 -Continue Flagyl 500 mg IV Q6 hours, received 4 doses - DAY 2, started on -Increase Protonix to 40 mg twice a day -Tylenol 650 mg Q4h PRN pain 1-10 of fever greater than 101F -Pain control with morphine 2 mg IV push every 3 hours when necessary -Zofran 4 mg IV Q6h PRN nausea/vomiting -OOB as tolerated -Monitor I's and O's every shift -Vital signs every 4 hours (2) Renal insufficiency Status: Resolved Plan: On admission creatinine elevated to 1.45; now within normal limits at 1.08 -Baseline creatinine unknown -SAHRA likely from dehydration due to multiple episodes of vomiting and diarrhea -Continue fluids as detailed below - expected to improve with fluid rehydration -Urinalysis within normal limits (3) FEN/DVT PPX/GI PPX Status: Acute Plan: Fluids: NS @130 mls/hr Electrolytes: Will monitor and replace as needed Nutrition: Full liquid diet - advance as tolerated DVT Prophylaxis: Bilateral SCDs GI Prophylaxis: Protonix 40 mg twice a day (Jodie Pratt MD R1) Jodie Pratt MD R1 Dec 13, 2016 09:18 Rocio Tierney MD Dec 21, 2016 12:03
[2016-12-13] MEDS ORDERED: ALUMINUM/MAGNESIUM/SIMETH 30 ML CUP PO PRN (09:30)
[2016-12-13] MEDS: PANTOPRAZOLE SODIUM 40 MG VIAL IV PUSH SCH ×2 (10:19→21:00)
[2016-12-13] MEDS: CIPROFLOXACIN 400 MG PREMIX 200 ML IV SCH ×2 (10:20→21:37)
[2016-12-13] MEDS: SODIUM CHLORIDE 0.9% FLUSH 5 ML FLUSH FLUSH SCH ×2 (10:21→21:00)
--- NOTE | 2016-12-13 10:50 | HHI.GIFU ---
Subjective Remarks Reports that he is having significant heartburn, epigastric discomfort. Nausea without vomiting. One loose stool. Taking clears, but hesitant to try regular diet because he is afraid this will aggravate his pain. Objective Vitals I&O Vital Signs Date Time Temp Pulse Resp B/P Pulse Ox O2 Delivery O2 Flow Rate FiO2 12/13/16 08:15 97.8 48 18 113/70 99 12/13/16 04:29 97.6 52 20 125/68 98 12/13/16 04:08 12 12/13/16 00:06 98.0 50 20 110/65 100 12/12/16 19:15 99.2 68 20 106/66 99 12/12/16 15:36 56 20 103/60 95 12/12/16 14:30 56 20 109/65 100 12/12/16 14:15 98.5 50 20 91/58 100 I/O 12/12/16 12/12/16 12/12/16 12/13/16 12/13/16 12/13/16 07:00 15:00 23:00 07:00 15:00 23:00 Intake Total 200 ml 105 ml Output Total 400 ml Balance 200 ml 105 ml -400 ml IV Total 200 ml 105 ml Output Urine Total 400 ml # Voids 4 Laboratory Laboratory Tests Test 12/13/16 12/13/16 01:50 06:49 Urine Color YELLOW Urine Turbidity CLEAR Urine pH 6.0 Urine Specific [place] 1.021 Urine Protein TRACE Urine Glucose (UA) NEG Urine Ketones TRACE Urine Occult Blood NEG Urine Nitrite NEG Urine Bilirubin NEG Urine Urobilinogen LESS THAN 2.0 Urine Leukocyte Esterase NEG Urine RBC LESS THAN 1 Urine WBC 2 Urine Renal Epithelial Cells <1 Urine Mucus FEW Microscopic Urinalysis Comment CULT NOT INDICATED White Blood Count 9.2 Red Blood Count 4.44 Hemoglobin 13.6 Hematocrit 39.7 Mean Corpuscular Volume 89.6 Mean Corpuscular Hemoglobin 30.6 Mean Corpuscular Hemoglobin 34.1 Concent Red Cell Distribution Width 13.1 Platelet Count 108 Mean Platelet Volume 10.2 Neutrophils (%) (Auto) 80.3 Lymphocytes (%) (Auto) 13.9 Monocytes (%) (Auto) 5.3 Eosinophils (%) (Auto) 0.3 Basophils (%) (Auto) 0.2 Neutrophils # (Auto) 7.4 Lymphocytes # (Auto) 1.3 Monocytes # (Auto) 0.5 Eosinophils # (Auto) 0.0 Basophils # (Auto) 0.0 CBC Comment DIFF FINAL Differential Comment Sodium Level 142 Potassium Level 3.3 Chloride Level 107 Carbon Dioxide Level 26.7 Anion Gap 8 Blood Urea Nitrogen 9 Creatinine 1.08 Estimat Glomerular Filtration 97 Rate Random Glucose 114 Calcium Level 8.1 Imaging Last Impressions Abdomen/Pelvis CT 12/11/1651 Signed Impressions: Service Date/Time: Sunday, December 11, 2016 11:04 - CONCLUSION: 1. Questionable wall thickening versus nondistention of transverse colon. This could be related to a colitis in the right clinical setting. 2. Otherwise unremarkable CT abdomen/pelvis. Jean Marie Enriquez MD Chest X-Ray 12/11/1648 Signed Impressions: Service Date/Time: Sunday, December 11, 2016 10:06 - CONCLUSION: No acute disease. Jean Marie Enriquez MD Physical Exam HEENT: Normocephalic; atraumatic; no jaundice. CHEST: Chest is clear to auscultation and percussion. CARDIAC: RRR ABDOMEN: Soft, nondistended, mild epigastric tenderness; no hepatosplenomegaly ; bowel sounds are present in all four quadrants. EXTREMITIES: No clubbing, cyanosis, or edema. SKIN: Normal; no rash; no jaundice. [employer]: No focal deficits; alert and oriented times three. Assessment and Plan Plan ASSESSMENT: - Intractable nausea/vomiting/diarrhea, abd pain. Abdomen/Pelvis CT (12/11/16)-- --> 1. Questionable wall thickening versus nondistention of transverse colon. This could be related to a colitis in the right clinical setting. 2. Otherwise unremarkable. S/P EGD/Colonoscopy (12/13/16)----> gastritis, normal egd otherwise, retroflexion views revealed gastritis in the fundus; normal colon mucosa. S/P random biopsies. Pt having significant heartburn and having nausea, without vomiting. States one loose stool. Pathology pending. Will increase PPI to BID dosing, get stool studies. Trial of full liquids, can advance as tolerated. Stool studies. Celiac panel pending, sandip negative. Flagyl, Cipro. WBC 9.2. - Leukocytosis- WBC 9.2, afebrile, abx - Acute renal failure- dehydration - Marijuana use. Recommend cessation. Plan: - Full liquids, advance as tolerated - Await pathology - Increase PPI to BID dosing - Send stool for cdiff, c/s, o/p, giardia - Zofran prn - Marijuana cessation - Further recommendation to follow based on results above - Patient seen and examined by Dr. Malhotra and myself and this note is written on his behalf. Barbie Garcia Dec 13, 2016 10:50
[2016-12-13] MEDS: SUCRALFATE 1 GM/10 ML CUP PO SCH (17:13)
[2016-12-13] MEDS: ONDANSETRON HCL 4 MG/2 ML VIAL IVP PRN (17:14)
[2016-12-13 19:19] VITALS: BP 139/86; PULSE 42; RESP 19; TEMP 98.3; O2SAT 100
[2016-12-14 03:54] LABS: IGA SERUM 122 mg/dL (81-463); TISSUE TRANSGLUTAMINASE AB IGG ND U/mL (())
[2016-12-14 03:56] VITALS: BP 128/80; PULSE 43; RESP 19; TEMP 98.2; O2SAT 100
[2016-12-14] MEDS: MORPHINE SULFATE 4 MG/ML INJ IV PUSH PRN (04:49)
[2016-12-14] MEDS: metroNIDAZOLE 500 MG INJ 100 ML IV SCH ×2 (04:50)
[2016-12-14] MEDS ORDERED: POTASSIUM CHLORIDE 20 MEQ CONTROLLED RELEASE TAB PO ONE (05:15)
--- NOTE | 2016-12-14 08:11 | HHI.FPPN ---
Subjective Remarks Pt feels much better today and wants to go home. He denies nausea, vomiting, diarrhea, and abdominal pain. The chest pain has resolved. No fevers. Objective Vitals Vital Signs Date Time Temp Pulse Resp B/P Pulse Ox O2 Delivery O2 Flow Rate FiO2 12/14/16 03:56 98.2 43 19 128/80 100 12/13/16 19:19 98.3 42 19 139/86 100 12/13/16 08:15 97.8 48 18 113/70 99 I/O 12/13/16 12/13/16 12/13/16 12/14/16 12/14/16 12/14/16 07:00 15:00 23:00 07:00 15:00 23:00 Intake Total 3258 ml 1317 ml Output Total 400 ml 750 ml Balance -400 ml 3258 ml 567 ml Intake Oral 480 ml IV Total 3258 ml 837 ml Output Urine Total 400 ml 750 ml Result Diagram: 12/13/16 0649 12/13/1649 Objective Remarks GENERAL: This is a well-nourished, well-developed patient, lying in bed, no distress SKIN: No rashes, ecchymoses or lesions. Cool and dry. HEAD: Atraumatic. Normocephalic. No temporal or scalp tenderness. EYES: Pupils equal round and reactive. Extraocular motions intact. No scleral icterus. No injection or drainage. ENT: Gold-plated teeth. Nose without bleeding, purulent drainage or septal hematoma. Throat without erythema, tonsillar hypertrophy or exudate. Uvula midline. Airway patent. NECK: Trachea midline. No JVD or lymphadenopathy. Supple, nontender, no meningeal signs. CARDIOVASCULAR: Bradycardic rate and rhythm without murmurs, gallops, or rubs. RESPIRATORY: Clear to auscultation. Breath sounds equal bilaterally. No wheezes , rales, or rhonchi. GASTROINTESTINAL: Abdomen soft, non-tender to palpation, nondistended. No hepato -splenomegaly, or palpable masses. No guarding. MUSCULOSKELETAL: Extremities without clubbing, cyanosis, or edema. No joint tenderness, effusion, or edema noted. NEUROLOGICAL: Cranial nerves grossly intact. Motor and sensory grossly within normal limits. Five out of 5 muscle strength in all muscle groups. Normal speech. A/P Assessment and Plan 31-year-old male with no significant past medical history presented to the [place] ED with recurrent abdominal pain, nausea, vomiting, and diarrhea of one day duration. CT abdomen and pelvis performed in the ED showed questionable wall thickening versus nondistention of transverse colon, which was suspicious for colitis. The patient was admitted to the family medicine team on observation for rehydration and treatment with antibiotics. Gastroenterology was consulted and an EGD/colonoscopy was performed on 12/12 which showed gastritis and normal colon mucosa. Random biopsy samples were taken for pathology evaluation, results are pending. On day 4 of admission, the patient felt a whole lot better. The nausea, vomiting , and diarrhea had resolved. Patient no longer had abdominal pain or burning chest pain. He wanted to go home. He was discharged home in stable condition. Discussed with Dr. Tierney and Dr. De Leon, PGY 2 Discharge Planning Plan to discharge tomorrow today as long as patient is tolerating by mouth intake with minimal nausea. Problem List: (1) Gastroenteritis and colitis Status: Acute Plan: -Improving, no vomiting episodes overnight -EGD and colonoscopy were performed and biopsy samples of gastric mucosa and colon have been sent for pathology review. Results are pending -Burning chest pain resolved -Continue Maalox every 6 hours when necessary -Continue sucralfate suspension by mouth 3 times a day scheduled -Continue Ciprofloxacin 400 mg IV Q4 hours, received 5 doses - DAY 2, started on 12/11/16 -Continue Flagyl 500 mg IV Q6 hours, received 11 doses - DAY 3, started on 12/11 -Continue Protonix to 40 mg twice a day -Tylenol 650 mg Q4h PRN pain 1-10 of fever greater than 101F -Pain control with morphine 2 mg IV push every 3 hours when necessary -Zofran 4 mg IV Q6h PRN nausea/vomiting -OOB as tolerated -Monitor I's and O's every shift -Vital signs every 4 hours (2) Renal insufficiency Status: Resolved Plan: On admission creatinine elevated to 1.45; within normal limits on 12/13 at 1.08 -Baseline creatinine unknown -SAHRA likely from dehydration due to multiple episodes of vomiting and diarrhea -Continue fluids as detailed below - expected to improve with fluid rehydration -Urinalysis within normal limits (3) FEN/DVT PPX/GI PPX Status: Acute Plan: Fluids: NS @130 mls/hr Electrolytes: Will monitor and replace as needed Nutrition: Full liquid diet - advance as tolerated DVT Prophylaxis: Bilateral SCDs GI Prophylaxis: Protonix 40 mg twice a day Jodie Pratt MD R1 Dec 14, 2016 08:11
[2016-12-14 08:12] VITALS: BP 135/86; PULSE 42; RESP 18; TEMP 97.5; O2SAT 100
[2016-12-14] MEDS: PANTOPRAZOLE SODIUM 40 MG VIAL IV PUSH SCH (08:27)
[2016-12-14] MEDS: SUCRALFATE 1 GM/10 ML CUP PO SCH (08:27)
[2016-12-14] MEDS: SODIUM CHLORIDE 0.9% FLUSH 5 ML FLUSH FLUSH SCH (08:33)
--- NOTE | 2016-12-14 09:25 | HHI.GIFU ---
Subjective Remarks Pt resting comfortably in bed, says he's hungry and wants to go home. No abd pain, no heartburn, no n/v, no diarrhea. Says he had a loose bowel movement last night, no blood. Says he has tolerated liquid diet so far. Objective Vitals I&O Vital Signs Date Time Temp Pulse Resp B/P Pulse Ox O2 Delivery O2 Flow Rate FiO2 12/14/16 08:12 97.5 42 18 135/86 100 12/14/16 03:56 98.2 43 19 128/80 100 12/13/16 19:19 98.3 42 19 139/86 100 I/O 12/13/16 12/13/16 12/13/16 12/14/16 12/14/16 12/14/16 07:00 15:00 23:00 07:00 15:00 23:00 Intake Total 3258 ml 1317 ml Output Total 400 ml 750 ml Balance -400 ml 3258 ml 567 ml Intake Oral 480 ml IV Total 3258 ml 837 ml Output Urine Total 400 ml 750 ml Imaging Last Impressions Abdomen/Pelvis CT 12/11/16 0951 Signed Impressions: Service Date/Time: Sunday, December 11, 2016 11:04 - CONCLUSION: 1. Questionable wall thickening versus nondistention of transverse colon. This could be related to a colitis in the right clinical setting. 2. Otherwise unremarkable CT abdomen/pelvis. Jean Marie Enriquez MD Chest X-Ray 12/11/16 0948 Signed Impressions: Service Date/Time: Sunday, December 11, 2016 10:06 - CONCLUSION: No acute disease. Jean Marie Enriquez MD Physical Exam HEENT: Normocephalic; atraumatic; no jaundice. CHEST: Chest is clear to auscultation and percussion. CARDIAC: RRR ABDOMEN: Soft, nondistended, nontender; no hepatosplenomegaly; bowel sounds are present in all four quadrants. EXTREMITIES: No clubbing, cyanosis, or edema. SKIN: Normal; no rash; no jaundice. SILK SPREADER: No focal deficits; alert and oriented times three. Assessment and Plan Plan ASSESSMENT: - Intractable nausea/vomiting/diarrhea, abd pain - much improved, denies pain, heartburn, n/v, diarrhea today. Abdomen/Pelvis CT (12/11/16)----> 1. Questionable wall thickening versus nondistention of transverse colon. This could be related to a colitis in the right clinical setting. 2. Otherwise unremarkable. S/P EGD/Colonoscopy (12/13/16)----> gastritis, normal egd otherwise, retroflexion views revealed gastritis in the fundus; normal colon mucosa. S/P random biopsies. Pathology pending. Will switch protonix from iv to PO BID. Full liquids tolerated, can advance to solid as tolerated. Stool studies. Celiac panel pending, sandip negative. Flagyl, Cipro. WBC 9.2. - Leukocytosis improved- WBC 9.2, afebrile, abx - Acute renal failure improving- dehydration. Creatinine 1.08, GFR 97, BUN 9 - Marijuana use. Recommend cessation. Plan: - Regulat AMARILYS - Await pathology - PPI to PO BID dosing - Pt to follow up in 2w and can do stool studies at that time - Marijuana cessation - Further recommendation to follow based on results above - If tolerates diet, ok to d/c from GI standpoint - Patient seen and examined by Dr. Malhotra and myself and this note is written on his behalf. Barbie Garcia Dec 14, 2016 09:25
[2016-12-14] MEDS ORDERED: MAG-LIQ PO (09:32)
[2016-12-14] MEDS ORDERED: SUCR1S PO (09:32)
--- NOTE | 2016-12-14 09:33 | HHI.DCPOC ---
Discharge Care Plan Diagnosis: (1) Gastroenteritis and colitis (2) Colitis (3) Renal insufficiency Goals to Promote Your Health * To prevent worsening of your condition and complications * To maintain your health at the optimal level Directions to Meet Your Goals Take your medications as prescribed Follow your dietary instruction Follow activity as directed Keep your appointments as scheduled Take your immunizations and boosters as scheduled If your symptoms worsen call your PCP, if no PCP go to Urgent Care Center or Emergency Room Smoking is Dangerous to Your Health. Avoid second hand smoke Call the 24-hour hour crisis hotline for domestic abuse at Jodie Pratt MD R1 Dec 14, 2016 09:33
[2016-12-14 09:36] LABS: AUTOMATED NEUTROPHIL # 5.5 TH/MM3 (1.8-7.7); BASOPHIL % 0.2 % (0.0-2.0); EOSINOPHIL # 0.1 TH/MM3 (0-0.4); EOSINOPHIL % 1.1 % (0.0-4.0); HEMATOCRIT 45.1 % (39.0-51.0); HEMO FLAGS DIFF FINAL; LYMPH % 22.3 % (9.0-44.0); LYMPHOCYTE # 1.8 TH/MM3 (1.0-4.8); MEAN CORPUSCULAR HEMOGLOBIN 30.6 PG (27.0-34.0); MEAN CORPUSCULAR HGB CONC 33.6 % (32.0-36.0); MONO % 8.1 % (0.0-8.0); NEUT % 68.3 % (16.0-70.0); PLATELET COUNT 108 TH/MM3 (150-450); RED BLOOD COUNT 4.96 MIL/MM3 (4.50-5.90); RED CELL DISTRIBUTION WIDTH 12.8 % (11.6-17.2); WHITE BLOOD COUNT 8.1 TH/MM3 (4.0-11.0)
[2016-12-14] MEDS ORDERED: PRIL20CA9 PO ×2 (09:42→09:43)
[2016-12-14 09:53] LABS: BICARBONATE 26.9 MEQ/L (21.0-32.0); POTASSIUM 3.4 MEQ/L (3.5-5.1)
[2016-12-14] MEDS: CIPROFLOXACIN 400 MG PREMIX 200 ML IV SCH (10:17)
[2016-12-15 07:51] LABS: ENDOMYSIAL AB TITER ND (<1:5); TISSUE TRANSGLUTAMINASE AB LESS THAN 1 U/mL (())
--- NOTE | 2016-12-22 16:36 | HHI.DS ---
Discharge Summary Admission Date Dec 11, 2016 at 11:55 Admitting Diagnosis colitis. Renal insufficiency. (1) Gastroenteritis and colitis Diagnosis: Principal (2) Renal insufficiency Diagnosis: Principal Brief History Patient is a 31-year-old male with no significant past medical history that presents to the [place] ED with a 1 day history of nausea, vomiting, diarrhea, and abdominal pain. His last meal was grilled chicken nachos which he ate around 2-3 PM yesterday 12/10. The patient denies eating any strange foods or foods that he has not eaten before. He describes the stomach pain as 8-10/10 sharp, intermittent, pain located in his mid-abdomen. He also endorses tightness across his mid chest. The patient vomited up to 20 times yesterday nonbloody, green, sometimes clear with small amount of mucus and had 10-15 episodes of diarrhea which she described as green, and nonbloody. He also had chills, sweats, runny nose but denies headache, fever, dysuria, cough. He denies recent international travel but was in [place] recently and returned on Saturday night. He states that he drank bottled water most of the time. He lives with his brother and does not have any sick contacts, no pets. He has not had a flu shot. PE at Discharge GENERAL: This is a well-nourished, well-developed patient, lying in bed, no distress SKIN: No rashes, ecchymoses or lesions. Cool and dry. HEAD: Atraumatic. Normocephalic. No temporal or scalp tenderness. EYES: Pupils equal round and reactive. Extraocular motions intact. No scleral icterus. No injection or drainage. ENT: Gold-plated teeth. Nose without bleeding, purulent drainage or septal hematoma. Throat without erythema, tonsillar hypertrophy or exudate. Uvula midline. Airway patent. NECK: Trachea midline. No JVD or lymphadenopathy. Supple, nontender, no meningeal signs. CARDIOVASCULAR: Bradycardic rate and rhythm without murmurs, gallops, or rubs. RESPIRATORY: Clear to auscultation. Breath sounds equal bilaterally. No wheezes , rales, or rhonchi. GASTROINTESTINAL: Abdomen soft, non-tender to palpation, nondistended. No hepato -splenomegaly, or palpable masses. No guarding. MUSCULOSKELETAL: Extremities without clubbing, cyanosis, or edema. No joint tenderness, effusion, or edema noted. NEUROLOGICAL: Cranial nerves grossly intact. Motor and sensory grossly within normal limits. Five out of 5 muscle strength in all muscle groups. Normal speech. Hospital Course Mr. Roberson was admitted to the family medicine service for rehydration and treatment with antibiotics. Gastroenterology was consulted and an EGD/ colonoscopy was performed on 12/12 which showed gastritis and normal colon mucosa. Random biopsy samples were taken for pathology evaluation. By day 4 of admission, the patient felt a whole lot better. The nausea, vomiting, and diarrhea had resolved. Patient no longer had abdominal pain or burning chest pain and wanted to go home. He was discharged home in stable condition to follow up with his PCP in one week and with GI in 1-2 weeks. Pt Condition on Discharge: Stable Discharge Disposition: Discharge Home Discharge Instructions DIET: Follow Instructions for: As Tolerated, No Restrictions Activities you can perform: Regular-No Restrictions Follow up Referrals: Appointment for Follow Up - 1 Week Gastroenterology - 1 Week with Kenisha Malhotra MD New Medications: Omeprazole (Prilosec) 20 Mg Cap 40 MG PO BID #28 Ref 0 CAP Oqrvqhuj-Xfianyitz-Icjpighspfm Liq (Mag-Al Plus Liq) 200-200-20 Mg/5 Ml Susp 30 ML PO Q6H PRN HEARTBURN Days 7 ML Sucralfate Liq (Sucralfate Liq) 1 Gm/10 Ml Joanne 1 GM PO TIDAC Days 14 BOTTLE Continued Medications: Lidocaine/Diphenhy/Alum/Mg/Sim (Magic Mouthwash-Diphenhy Formula) Ml 5-10 ML SSP 5 TIMES A DAY MAGIC MOUTHWASH CONTAINS 1/3 VISCOUS LIDOCAINE, 1/3 MAALOX, AND 1/3 BENADRYL. #120 ML Discontinued Medications: Amoxicillin (Amoxicillin) 875 Mg Tab 875 MG PO BID Days 10 TAB Doxycycline Hyclate 100 mg (Doxycycline Hyclate 100 mg) 100 Mg Tab 100 MG PO BID #14 TAB Jodie Pratt MD R1 Dec 22, 2016 16:36
== END 2016-12-14 12:09 | disposition home or self-care (01) ==
LOC: NEPA 08:18 → NEDA 11:55 → NEPHCDU 15:22
PROVIDERS: ADMIT Family Medicine; ATTEND Family Medicine
DX: K52.9 Noninfective gastroenteritis and colitis, unspecified (principal); N17.9 Acute kidney failure, unspecified; K29.50 Unspecified chronic gastritis without bleeding; R07.9 Chest pain, unspecified; R19.7 Diarrhea, unspecified; R11.2 Nausea with vomiting, unspecified; E86.0 Dehydration; F12.90 Cannabis use, unspecified, uncomplicated; F17.210 Nicotine dependence, cigarettes, uncomplicated
CPT/HCPCS: 00740; 43239; 45380; 71010; 74177; 80048; 80053; 81001; 82550; 82784; 83516; 83690; 84484; 85025; 86038; 88305; 88312; 93005; 96374; 96375; 99285; C9113; G0378; J0744; J1956; J2270; J2405; J7030; Q9967

== ENCOUNTER 2017-03-17 08:27 | Emergency (ER) | payer SELFPAY ==
[~2017-03-17] VITALS: Ht 182.9 cm; Wt 70.0 kg
[~2017-03-17 08:27] MED LIST changes: -AMOX875 PO; -DOXY100T PO; +MAG-LIQ PO; +PRIL20CA9 PO; +SUCR1S PO
[2017-03-17 08:29] VITALS: BP 143/88; PULSE 65; RESP 18; TEMP 98.2; O2SAT 99
[2017-03-17] MEDS ORDERED: SODIUM CHLOR 0.9% 1000 ML INJ 1,000 ML IV SCH ×2 (08:54→10:30)
[2017-03-17] MEDS ORDERED: MORPHINE SULFATE 4 MG/ML INJ IV PUSH ONE ×2 (09:00→10:30)
[2017-03-17] MEDS ORDERED: ONDANSETRON HCL 4 MG/2 ML VIAL IVP ONE (09:00)
[2017-03-17] MEDS ORDERED: SODIUM CHLORIDE 0.9% FLUSH 10 ML FLUSH IV FLUSH PRN (09:00)
--- NOTE | 2017-03-17 09:13 | PD ---
HPI Chief Complaint: GI Complaint Time Seen by Provider: 08:47 Travel History International Travel<30 days: No Contact w/Intl Traveler<30days: No Traveled to known affect area: No History of Present Illness HPI This is a 32-year-old male who presents to the emergency department with nausea , vomiting and abdominal pain that's been going on for 2 days, constant, moderate severity associated with some loose stools. This is happened to him before. He was hospitalized in November for similar symptoms. He had an endoscopy which demonstrated gastritis. He denies any fevers or chills. He says this happens to him about once per year. He does drink alcohol occasionally and he smokes marijuana every day. PFSH Past Medical History Asthma: No Blood Disorders: No Heart Rhythm Problems: No Cancer: No Cardiovascular Problems: No High Cholesterol: No Chemotherapy: No Chest Pain: No Congestive Heart Failure: No COPD: No Diabetes: No Diminished Hearing: No Endocrine: No GERD: Yes Genitourinary: No Immune Disorder: No Musculoskeletal: No Neurologic: No Psychiatric: No Reproductive: No Respiratory: No Radiation Therapy: No Sleep Apnea: No Thyroid Disease: No Tetanus Vaccination: > 5 Years Influenza Vaccination: No Past Surgical History Surgical History: No Previous Surgery Other Surgery: No Social History Alcohol Use: Yes (Drinks 2 days per week/liquor/2 drinks. Last drink Saturday) Tobacco Use: Yes Substance Use: Yes (marijuana) Allergies-Medications (Allergen,Severity, Reaction): Coded Allergies: No Known Allergies (Verified , 03/17/17) Reported Meds & Prescriptions Reported Meds & Active Scripts Active Sucralfate Liq (Sucralfate) 1 Gm/10 Ml Joanne 1 Gm PO TIDAC 14 Days Mag-Al Plus Liq (Lhfuulez-Xencaqotf-Ijuudadrpyg Liq) 200-200-20 Mg/5 Ml Susp 30 Ml PO Q6H PRN 7 Days Review of Systems Except as stated in HPI: all other systems reviewed are Neg Physical Exam Narrative GENERAL:Well appearing, no acute distress SKIN: Focused skin assessment warm and dry. HEAD: Atraumatic. Normocephalic. EYES: Pupils equal and round. No injection or drainage. ENT: Dry mucous membranes. NECK: Trachea midline. CARDIOVASCULAR: Regular rate and rhythm. No murmur appreciated. RESPIRATORY: Clear to auscultation. Breath sounds equal bilaterally. GASTROINTESTINAL: Abdomen soft, tender to palpation in the upper abdomen with no rebound or guarding. MUSCULOSKELETAL: No obvious deformities. NEUROLOGICAL: Awake and alert. No obvious cranial nerve deficits. Moving all extremities. PSYCHIATRIC: Appropriate mood and affect; insight and judgment normal. Data Data Last Documented VS Vital Signs Date Time Temp Pulse Resp B/P Pulse Ox O2 Delivery O2 Flow Rate FiO2 03/17/17 09:18 60 105/59 99 Room Air 03/17/17 08:29 98.2 18 Orders Complete Blood Count With Diff (03/17/17 08:54) Comprehensive Metabolic Panel (03/17/17 08:54) Lipase (03/17/17 08:54) Urinalysis - C+S If Indicated (03/17/17 08:54) Iv Access Insert/Monitor (03/17/17 08:54) Ecg Monitoring (03/17/17 08:54) Oximetry (03/17/17 08:54) Morphine Inj (Morphine Inj) (03/17/17 09:00) Ondansetron Inj (Zofran Inj) (03/17/17 09:00) Sodium Chlor 0.9% 1000 Ml Inj (Ns 1000 M (03/17/17 08:54) Sodium Chloride 0.9% Flush (Ns Flush) (03/17/17 09:00) Morphine Inj (Morphine Inj) (03/17/17 10:30) Sodium Chlor 0.9% 1000 Ml Inj (Ns 1000 M (03/17/17 10:30) Labs Laboratory Tests Test 03/17/17 09:00 White Blood Count 10.2 TH/MM3 Red Blood Count 5.08 MIL/MM3 Hemoglobin 15.4 GM/DL Hematocrit 45.2 % Mean Corpuscular Volume 88.9 FL Mean Corpuscular Hemoglobin 30.3 PG Mean Corpuscular Hemoglobin 34.1 % Concent Red Cell Distribution Width 13.7 % Platelet Count 137 TH/MM3 Mean Platelet Volume 10.1 FL Neutrophils (%) (Auto) 87.8 % Lymphocytes (%) (Auto) 9.3 % Monocytes (%) (Auto) 2.6 % Eosinophils (%) (Auto) 0.0 % Basophils (%) (Auto) 0.3 % Neutrophils # (Auto) 8.9 TH/MM3 Lymphocytes # (Auto) 0.9 TH/MM3 Monocytes # (Auto) 0.3 TH/MM3 Eosinophils # (Auto) 0.0 TH/MM3 Basophils # (Auto) 0.0 TH/MM3 CBC Comment DIFF FINAL Differential Comment Sodium Level 146 MEQ/L Potassium Level 4.0 MEQ/L Chloride Level 107 MEQ/L Carbon Dioxide Level 28.3 MEQ/L Anion Gap 11 MEQ/L Blood Urea Nitrogen 17 MG/DL Creatinine 1.69 MG/DL Estimat Glomerular Filtration 58 ML/MIN Rate Random Glucose 118 MG/DL Calcium Level 9.8 MG/DL Total Bilirubin 0.4 MG/DL Aspartate Amino Transf 15 U/L (AST/SGOT) Alanine Aminotransferase 22 U/L (ALT/SGPT) Alkaline Phosphatase 62 U/L Total Protein 8.4 GM/DL Albumin 4.3 GM/DL Lipase 44 U/L MDM Medical Decision Making Medical Screen Exam Complete: Yes Emergency Medical Condition: Yes Interpretation(s) Afebrile, normotensive No leukocytosis Hypernatremia GFR is 58, decreased from prior on discharge Differential Diagnosis Gastritis, inflammatory bowel disease, cannabis hyperemesis syndrome, pancreatitis Narrative Course This is a 32-year-old male who presents to the emergency department with vomiting and abdominal discomfort. He is presented similar to this in the past. He was admitted in November and had an endoscopy performed which demonstrated some gastritis. He was discharged on omeprazole and sucralfate that he never filled the prescriptions because he was feeling well. Patient was placed on a monitor and an IV was established. Labs are obtained which demonstrate some renal insufficiency compared to discharge with a GFR of 58. Patient was given 2 L of IV hydration in the emergency department. He was given antiemetics and pain control. He feels better on reassessment. I don't think any repeat imaging is warranted as he just had a CT scan in November. Pt. was able to drink water prior to discharge. I think the patient can orally hydrate at home, and if he feels worse he can return to the emergency department at which time we can consider admission. Diagnosis Primary Impression: Gastritis Qualified Code: K29.00 - Acute gastritis without hemorrhage, unspecified gastritis type Patient Instructions: General Instructions Additional Instructions: If you develop severe or worsening abdominal pain, fever>100.4, persistent vomiting or inability to eat or drink return to the emergency department immediately. Follow up with your primary care physician in 1-2 days for a check-up. Med/Other Pt SpecificInfo: Prescription(s) given Scripts Sucralfate 1 Gm Tab1 Gm PO TID #90 TAB Ref 0 on empty stomach Prov:Anupama Reese MD 03/17/17 Omeprazole 40 Mg Cap40 Mg PO DAILY #30 CAP Ref 0 Prov:Anupama Reese MD 03/17/17 Ondansetron Odt (Zofran Odt)4 Mg Tab4 Mg SL Q6HR PRN (Nausea/Vomiting) #15 TAB Prov:Anupama Reese MD 03/17/17 Disposition: 01 DISCHARGE HOME Condition: Stable Anupama Reese MD March 17, 2017 09:13
[2017-03-17 09:15] VITALS: O2SAT 100
[2017-03-17 09:18] VITALS: BP 105/59; PULSE 60; O2SAT 99
[2017-03-17 09:22] LABS: AUTOMATED NEUTROPHIL # 8.9 TH/MM3 (1.8-7.7); BASOPHIL % 0.3 % (0.0-2.0); HEMATOCRIT 45.2 % (39.0-51.0); HEMO FLAGS DIFF FINAL; LYMPH % 9.3 % (9.0-44.0); LYMPHOCYTE # 0.9 TH/MM3 (1.0-4.8); MEAN CELL VOLUME 88.9 FL (80.0-100.0); MEAN CORPUSCULAR HEMOGLOBIN 30.3 PG (27.0-34.0); MEAN CORPUSCULAR HGB CONC 34.1 % (32.0-36.0); MONO % 2.6 % (0.0-8.0); NEUT % 87.8 % (16.0-70.0); PLATELET COUNT 137 TH/MM3 (150-450); RED BLOOD COUNT 5.08 MIL/MM3 (4.50-5.90); RED CELL DISTRIBUTION WIDTH 13.7 % (11.6-17.2); WHITE BLOOD COUNT 10.2 TH/MM3 (4.0-11.0)
[2017-03-17 09:40] LABS: ANION GAP 11 MEQ/L (5-15); AST (GOT) 15 U/L (15-37); BICARBONATE 28.3 MEQ/L (21.0-32.0); BLOOD UREA NITROGEN 17 MG/DL (7-18); CHLORIDE 107 MEQ/L (98-107); GLOMERULAR FILTRATION RATE 58 ML/MIN (>89); SODIUM (NA) 146 MEQ/L (136-145)
[2017-03-17 09:43] LABS: ALKALINE PHOSPHATASE 62 U/L (45-117); ALT (GPT) 22 U/L (12-78); TOTAL BILIRUBIN ADULT 0.4 MG/DL (0.2-1.0)
[2017-03-17] MEDS ORDERED: ZOFR4TAB3 SL (11:23)
[2017-03-17] MEDS ORDERED: OMEP40CA2 PO (11:23)
[2017-03-17] MEDS ORDERED: SUCR1TAB PO (11:23)
== END 2017-03-17 13:04 | disposition home or self-care (01) ==
LOC: NEPC 08:27
DX: K29.00 Acute gastritis without bleeding (principal); F12.20 Cannabis dependence, uncomplicated; F10.10 Alcohol abuse, uncomplicated; Z72.0 Tobacco use
CPT/HCPCS: 80053; 83690; 85025; 96361; 96374; 96375; 96376; 99284; J2270; J2405; J7030

== ENCOUNTER 2017-03-18 00:54 | Emergency (ER) | payer SELFPAY ==
[~2017-03-18] VITALS: Ht 180.3 cm; Wt 70.0 kg
[~2017-03-18 00:54] MED LIST changes: +OMEP40CA2 PO; +SUCR1TAB PO; +ZOFR4TAB3 SL
[2017-03-18 00:56] VITALS: BP 157/77; PULSE 97; RESP 16; TEMP 98.5; O2SAT 98
[2017-03-18] MEDS ORDERED: ONDANSETRON HCL 4 MG/2 ML VIAL IV ONE (02:30)
[2017-03-18] MEDS ORDERED: SODIUM CHLOR 0.9% 1000 ML INJ 1,000 ML IV ONE ×2 (02:30→04:15)
[2017-03-18 02:57] LABS: AUTOMATED NEUTROPHIL # 11.7 TH/MM3 (1.8-7.7); BASOPHIL % 0.3 % (0.0-2.0); EOSINOPHIL % 0.1 % (0.0-4.0); HEMATOCRIT 43.5 % (39.0-51.0); HEMO FLAGS DIFF FINAL; LYMPH % 7.7 % (9.0-44.0); MEAN CORPUSCULAR HEMOGLOBIN 30.3 PG (27.0-34.0); MEAN CORPUSCULAR HGB CONC 34.1 % (32.0-36.0); MONO % 5.7 % (0.0-8.0); NEUT % 86.2 % (16.0-70.0); PLATELET COUNT 167 TH/MM3 (150-450); RED BLOOD COUNT 4.89 MIL/MM3 (4.50-5.90); RED CELL DISTRIBUTION WIDTH 13.7 % (11.6-17.2); WHITE BLOOD COUNT 13.5 TH/MM3 (4.0-11.0)
--- NOTE | 2017-03-18 03:02 | PD ---
HPI Chief Complaint: Abdominal Pain Time Seen by Provider: 02:06 Travel History International Travel<30 days: No Contact w/Intl Traveler<30days: No Traveled to known affect area: No History of Present Illness HPI The patient is a 32 year old male who presents to the [facility] emergency department with a history of abdominal pain that is sharp in character and constant that began on Saturday night. He has had N/V x10, diarrhea- x2-3 today. He denies any blood in the stool. He denies any recent foreign travel or antibiotic use. The patient was admitted in December 2016 related to gastritis with similar symptoms. The patient reports that he last used marijuana 2 days ago. He denies drinking alcohol regularly. He was seen in the emergency department yesterday on March 17 and had laboratory studies done which showed mild dehydration. The patient was sent home with 3 prescriptions, however he has not gotten the prescriptions filled. The patient denies any recent fevers, cough, congestion, neck pain, chest pain, shortness of breath, urinary symptoms , or neurologic symptoms. PFS Past Medical History Narrative Medical The patient's past medical history is significant for gastritis. Asthma: No Blood Disorders: No Heart Rhythm Problems: No Cancer: No Cardiovascular Problems: No High Cholesterol: No Chemotherapy: No Chest Pain: No Congestive Heart Failure: No COPD: No Diabetes: No Diminished Hearing: No Endocrine: No GERD: Yes Genitourinary: No Immune Disorder: No Musculoskeletal: No Neurologic: No Psychiatric: No Reproductive: No Respiratory: No Radiation Therapy: No Sleep Apnea: No Thyroid Disease: No Past Surgical History Narrative Surgical The patient's past surgical history is significant for none. Surgical History: No Previous Surgery Abdominal Surgery: No Other Surgery: No Social History Alcohol Use: Yes (Drinks 2 days per week/liquor/2 drinks. Last drink Saturday) Tobacco Use: Yes (1/2PPD) Substance Use: Yes (quit- 2 days ago. ) Allergies-Medications (Allergen,Severity, Reaction): Coded Allergies: No Known Allergies (Verified , 03/18/17) Reported Meds & Prescriptions Reported Meds & Active Scripts Active Sucralfate 1 Gm Tab 1 Gm PO TID on empty stomach Omeprazole 40 Mg Cap 40 Mg PO DAILY Zofran Odt (Ondansetron Odt) 4 Mg Tab 4 Mg SL Q6HR PRN Sucralfate Liq (Sucralfate) 1 Gm/10 Ml Joanne 1 Gm PO TIDAC 14 Days Mag-Al Plus Liq (Bdozefee-Dxkngdazb-Bztzrsgiqcc Liq) 200-200-20 Mg/5 Ml Susp 30 Ml PO Q6H PRN 7 Days Review of Systems Except as stated in HPI: all other systems reviewed are Neg General / Constitutional: No: Fever Eyes: No: Visual changes HENT: No: Headaches Cardiovascular: No: Chest Pain or Discomfort Respiratory: No: Shortness of Breath Gastrointestinal: Positive: Nausea, Vomiting, Diarrhea, Abdominal Pain, Changes in Bowel Habits, Indigestion, Loss of Appetite, No: Hematemesis, Hematochezia, Constipation Genitourinary: No: Dysuria Musculoskeletal: No: Pain Skin: No Rash Neurologic: No: Weakness Psychiatric: No: Depression Endocrine: No: Polydipsia Hematologic/Lymphatic: No: Easy Bruising Physical Exam Narrative General: The patient is a well-developed well-nourished male in no acute distress. Head and Neck exam: Head is normocephalic atraumatic. Eyes: EOMI, pupils are equal round and reactive to light. Nose: Midline septum with pink mucous membranes Mouth: Dentition unremarkable. Moist mucus membranes. Posterior oropharynx is not erythematous. No tonsillar hypertrophy. Uvula midline. Airway patent. Neck: No palpable lymphadenopathy. No nuchal rigidity. No thyromegaly. Cardiovascular: Regular rate and rhythm without murmurs, gallops, or rubs. Lungs: Clear to auscultation bilaterally. No wheezes, rhonchi, or rales. Abdomen: Soft, with reported discomfort on palpation of the midepigastric area, no other tenderness on palpation of the other quadrants of the abdomen. No guarding, rebound, or rigidity. Normal bowel sounds are audible. No tenderness on palpation of McBurney's point. Negative Ponce's sign. Extremities: No clubbing, cyanosis, or edema. 2+ pulses in all 4 extremities. No calf tenderness on palpation. Back: No spinous process tenderness to palpation. No costovertebral angle tenderness to palpation. Neurologic Exam: Grossly nonfocal. Skin Exam: No rash noted. Intact skin that is warm and dry. Data Data Last Documented VS Vital Signs Date Time Temp Pulse Resp B/P Pulse Ox O2 Delivery O2 Flow Rate FiO2 03/18/17 02:14 18 03/18/17 00:56 98.5 97 157/77 98 Room Air Orders Complete Blood Count With Diff (03/18/17 02:22) Basic Metabolic Panel (Bmp) (03/18/17 02:22) Urinalysis - C+S If Indicated (03/18/17 02:22) Iv Access Insert/Monitor (03/18/17 02:22) Ecg Monitoring (03/18/17 02:22) Oximetry (03/18/17 02:22) Sodium Chlor 0.9% 1000 Ml Inj (Ns 1000 M (03/18/17 02:30) Ondansetron Inj (Zofran Inj) (03/18/17 02:30) Morphine Inj (Morphine Inj) (03/18/17 03:15) Pantoprazole Inj (Protonix Inj) (03/18/17 03:15) Sodium Chlor 0.9% 1000 Ml Inj (Ns 1000 M (03/18/17 04:15) Labs Laboratory Tests Test 03/18/17 02:45 White Blood Count 13.5 TH/MM3 Red Blood Count 4.89 MIL/MM3 Hemoglobin 14.8 GM/DL Hematocrit 43.5 % Mean Corpuscular Volume 89.0 FL Mean Corpuscular Hemoglobin 30.3 PG Mean Corpuscular Hemoglobin 34.1 % Concent Red Cell Distribution Width 13.7 % Platelet Count 167 TH/MM3 Mean Platelet Volume 10.9 FL Neutrophils (%) (Auto) 86.2 % Lymphocytes (%) (Auto) 7.7 % Monocytes (%) (Auto) 5.7 % Eosinophils (%) (Auto) 0.1 % Basophils (%) (Auto) 0.3 % Neutrophils # (Auto) 11.7 TH/MM3 Lymphocytes # (Auto) 1.0 TH/MM3 Monocytes # (Auto) 0.8 TH/MM3 Eosinophils # (Auto) 0.0 TH/MM3 Basophils # (Auto) 0.0 TH/MM3 CBC Comment DIFF FINAL Differential Comment Sodium Level 147 MEQ/L Potassium Level 3.8 MEQ/L Chloride Level 108 MEQ/L Carbon Dioxide Level 30.3 MEQ/L Anion Gap 9 MEQ/L Blood Urea Nitrogen 15 MG/DL Creatinine 1.52 MG/DL Estimat Glomerular Filtration 65 ML/MIN Rate Random Glucose 110 MG/DL Calcium Level 9.5 MG/DL MDM Medical Decision Making Medical Screen Exam Complete: Yes Emergency Medical Condition: Yes Medical Record Reviewed: Yes Differential Diagnosis Gastritis recurrent gastritis, versus cyclic vomiting syndrome, versus dehydration, versus electrolyte derangement, versus gastroenteritis Narrative Course During the course of the patients emergency department visit, the patients history, examination, and differential diagnosis were reviewed with the patient. The patient had IV access obtained and blood work sent for analysis. The patient was placed on a hospital monitor with oximetry and blood pressure monitoring. The patient was initially provided Normal saline 1 L IV fluid bolus, Zofran 4 mg IV, morphine 4 mg IV for pain, Protonix 40 mg IV. A second liter of normal saline IV fluids was administered. The patients laboratory studies were reviewed and remarkable for a white count of 13.5, hemoglobin 14.8, platelets 167 with 86.2 neutrophils, lymphocytes 7.7, BMP is remarkable for a sodium of 147, chloride 108, creatinine 1.52 which is improved compared to previously 1.69, glucose 110. On March 17 the patient had normal liver function tests and a lipase that was within normal limits. Review of the electronic medical record reveals that the patient recently had a CT scan of the abdomen and pelvis done in December 2016 and also was admitted for possible colitis and underwent upper and lower endoscopy. Upper endoscopy revealed gastritis, lower endoscopy revealed no acute abnormality. Pathology was negative in the colon, however gastritis was noted on upper endoscopy pathology. The patient's abdominal examination is benign, therefore at this time further imaging would not be recommended due to risk of recurrent radiation exposure. The patient was encouraged to fill the prescriptions that were previously provided yesterday. The patient is resting comfortably and feels better, is alert and in no distress. The patients results and examination findings were discussed with the patient. The repeat examination is unremarkable and benign. The history, exam, diagnostic testing, and current condition do not suggest any significant pathology to warrant further testing, continued ED treatment, admission, or surgical evaluation at this point. The vital signs have been stable. The patient does not have uncontrollable pain, intractable vomiting, or other significant symptoms. The patient's condition is stable and appropriate for discharge. The patient will pursue further outpatient evaluation with a primary care physician or other designated or consulting physician as indicated in the discharge instructions. The patient expressed understanding and was agreeable with this plan. Diagnosis Primary Impression: Abdominal pain Qualified Code: R10.13 - Epigastric pain Additional Impression: Gastritis Qualified Code: K29.00 - Acute gastritis, presence of bleeding unspecified, unspecified gastritis type Referrals: Primary Care Physician 2 days Patient Instructions: Abdominal Pain (ED), Gastritis (ED), General Instructions Additional Instructions: Fill the prescriptions that were previously provided. Avoid marijuana. Med/Other Pt SpecificInfo: No Change to Meds Disposition: 01 DISCHARGE HOME Condition: Stable Rosangela Burns MD March 18, 2017 03:02
[2017-03-18] MEDS ORDERED: PANTOPRAZOLE SODIUM 40 MG VIAL IV PUSH ONE (03:15)
[2017-03-18] MEDS ORDERED: MORPHINE SULFATE 4 MG/ML INJ IV PUSH ONE (03:15)
[2017-03-18 03:20] LABS: BICARBONATE 30.3 MEQ/L (21.0-32.0); POTASSIUM 3.8 MEQ/L (3.5-5.1)
--- NOTE | 2017-03-18 08:15 | EKG ---
Date Performed: 03/18/2017 Time Performed: 02:19:15 PTAGE: 32 years EKG: Baseline artifact present SINUS BRADYCARDIA With possible ectopics NONSPECIFIC ST & T-WAVE ABNORMALITY BORDERLINE ECG Would repeat EKG due to artifact PREVIOUS TRACING : 12/12/2016 05.10 DOCTOR: Walter Hewitt Interpretating Date/Time 03/18/2017 08:13:41
[2017-03-19] MEDS ORDERED: PROM25TA10 PO (01:35)
== END 2017-03-18 05:36 | disposition home or self-care (01) ==
LOC: NEPE 00:54
DX: R10.13 Epigastric pain (principal); K29.00 Acute gastritis without bleeding; R19.7 Diarrhea, unspecified; R11.2 Nausea with vomiting, unspecified; R94.31 Abnormal electrocardiogram [ECG] [EKG]; F17.210 Nicotine dependence, cigarettes, uncomplicated
CPT/HCPCS: 80048; 85025; 93005; 96374; 96375; 99284; C9113; J2270; J2405; J7030

== ENCOUNTER 2017-03-18 23:29 | Emergency (ER) | payer SELFPAY ==
[~2017-03-18] VITALS: Ht 185.4 cm; Wt 70.0 kg
[2017-03-18 23:31] VITALS: BP 138/82; PULSE 52; RESP 18; TEMP 98.7; O2SAT 99
--- NOTE | 2017-03-19 00:25 | PD ---
HPI Chief Complaint: Abdominal Pain Time Seen by Provider: 23:51 Travel History International Travel<30 days: No Contact w/Intl Traveler<30days: No Traveled to known affect area: No History of Present Illness HPI This patient complains of nausea and vomiting. Complains of epigastric discomfort. Been here 3 times in the last 3 days for the same thing. I go into the room to evaluate him he is sound asleep in the bed. Symptoms severity is moderate. No alleviating factors. Duration 5 days. PFSH Past Medical History Asthma: No Blood Disorders: No Heart Rhythm Problems: No Cancer: No Cardiovascular Problems: No High Cholesterol: No Chemotherapy: No Chest Pain: No Congestive Heart Failure: No COPD: No Diabetes: No Diminished Hearing: No Endocrine: No Gastrointestinal Disorders: Yes GERD: Yes Genitourinary: No Immune Disorder: No Musculoskeletal: No Neurologic: No Psychiatric: No Reproductive: No Respiratory: No Radiation Therapy: No Sleep Apnea: No Thyroid Disease: No Past Surgical History Surgical History: No Previous Surgery Abdominal Surgery: No Other Surgery: No Social History Alcohol Use: Yes (Drinks 2 days per week/liquor/2 drinks. Last drink Saturday) Tobacco Use: Yes (1/2PPD) Substance Use: Yes (quit- 2 days ago. ) Allergies-Medications (Allergen,Severity, Reaction): Coded Allergies: No Known Allergies (Verified , 03/18/17) Reported Meds & Prescriptions Reported Meds & Active Scripts Active Sucralfate 1 Gm Tab 1 Gm PO TID on empty stomach Omeprazole 40 Mg Cap 40 Mg PO DAILY Zofran Odt (Ondansetron Odt) 4 Mg Tab 4 Mg SL Q6HR PRN Review of Systems General / Constitutional: No: Fever Eyes: No: Visual changes HENT: No: Headaches Cardiovascular: No: Chest Pain or Discomfort Respiratory: No: Shortness of Breath Gastrointestinal: Positive: Nausea, Vomiting, Abdominal Pain Genitourinary: No: Dysuria Musculoskeletal: No: Pain Skin: No Rash Neurologic: No: Weakness Psychiatric: No: Depression Endocrine: No: Polydipsia Hematologic/Lymphatic: No: Easy Bruising Physical Exam Narrative GENERAL: Well-nourished, well-developed patient in no apparent distress. SKIN: Focused skin assessment reveals no rash and nodules. Skin is Warm and dry. HEAD: Atraumatic. Normocephalic. EYES: Pupils equal and round. No scleral icterus. No injection or drainage. ENT: No nasal bleeding or discharge. Mucous membranes pink and moist. NECK: Trachea midline. No JVD. CARDIOVASCULAR: Regular rate and rhythm. No murmur appreciated. RESPIRATORY: No accessory muscle use. Clear to auscultation. Breath sounds equal bilaterally. GASTROINTESTINAL: Abdomen soft, non-tender, nondistended. Hepatic and splenic margins not palpable. MUSCULOSKELETAL: No obvious deformities. No clubbing. No cyanosis. No edema. NEUROLOGICAL: Awake and alert. No obvious cranial nerve deficits. Motor grossly within normal limits. Normal speech. PSYCHIATRIC: Appropriate mood and affect; insight and judgment normal. Data Data Last Documented VS Vital Signs Date Time Temp Pulse Resp B/P Pulse Ox O2 Delivery O2 Flow Rate FiO2 03/18/17 23:31 98.7 52 18 138/82 99 Room Air Orders Complete Blood Count With Diff (03/19/17 00:20) Comprehensive Metabolic Panel (03/19/17 00:20) Lipase (03/19/17 00:20) Iv Access Insert/Monitor (03/19/17 00:20) Ondansetron Inj (Zofran Inj) (03/19/17 00:30) Sodium Chloride 0.9% Flush (Ns Flush) (03/19/17 00:30) Sodium Chlor 0.9% 1000 Ml Inj (Ns 1000 M (03/19/17 00:30) Labs Laboratory Tests Test 03/19/17 00:30 White Blood Count 10.1 TH/MM3 Red Blood Count 4.59 MIL/MM3 Hemoglobin 13.8 GM/DL Hematocrit 40.2 % Mean Corpuscular Volume 87.7 FL Mean Corpuscular Hemoglobin 30.1 PG Mean Corpuscular Hemoglobin 34.3 % Concent Red Cell Distribution Width 13.6 % Platelet Count 127 TH/MM3 Mean Platelet Volume 10.3 FL Neutrophils (%) (Auto) 82.4 % Lymphocytes (%) (Auto) 10.8 % Monocytes (%) (Auto) 4.7 % Eosinophils (%) (Auto) 0.1 % Basophils (%) (Auto) 2.0 % Neutrophils # (Auto) 8.3 TH/MM3 Lymphocytes # (Auto) 1.1 TH/MM3 Monocytes # (Auto) 0.5 TH/MM3 Eosinophils # (Auto) 0.0 TH/MM3 Basophils # (Auto) 0.2 TH/MM3 CBC Comment AUTO DIFF Sodium Level 145 MEQ/L Potassium Level 3.4 MEQ/L Chloride Level 107 MEQ/L Carbon Dioxide Level 29.2 MEQ/L Anion Gap 9 MEQ/L Blood Urea Nitrogen 10 MG/DL Creatinine 1.21 MG/DL Estimat Glomerular Filtration 85 ML/MIN Rate Random Glucose 105 MG/DL Calcium Level 9.0 MG/DL Total Bilirubin 0.4 MG/DL Aspartate Amino Transf 14 U/L (AST/SGOT) Alanine Aminotransferase 18 U/L (ALT/SGPT) Alkaline Phosphatase 50 U/L Total Protein 6.8 GM/DL Albumin 3.8 GM/DL Lipase 68 U/L [facility] Medical Decision Making Medical Screen Exam Complete: Yes Emergency Medical Condition: Yes Medical Record Reviewed: Yes Differential Diagnosis Cyclical vomiting, gastritis, vomiting from marijuana Narrative Course I have reviewed the patient's electronic medical record. Reviewed his visit from yesterday IV placed CBC is normal Metabolic profile shows no emergent issue LFTs are normal Lipase is normal I gave him IV Zofran and 1 L normal saline IV bolus Patient looks clinically euvolemic with soft benign nontender abdomen I wrote him some Phenergan Stable for outpatient follow-up Diagnosis Primary Impression: Nausea and vomiting Qualified Code: R11.2 - Non-intractable vomiting with nausea, unspecified vomiting type Additional Impression: Abdominal pain Qualified Code: R10.13 - Epigastric pain Additional Instructions: The patient was advised to follow up with their physician and return if they worsen. I have recommended clear liquids for 24 hours, then gradually advance as tolerated. The patient was warned about potential sedation for the medications they will receive on prescription. Med/Other Pt SpecificInfo: Prescription(s) given Scripts Promethazine (Phenergan)25 Mg [id number] Mg PO Q6H PRN (NAUSEA OR VOMITING) #15 TAB Ref 0 Prov:Maykel Jonas MD 03/19/17 Disposition: DISCHARGE HOME Condition: Stable Maykel Jonas MD March 19, 2017 00:25
[2017-03-19] MEDS ORDERED: SODIUM CHLORIDE 0.9% FLUSH 10 ML FLUSH IV FLUSH PRN (00:30)
[2017-03-19] MEDS ORDERED: SODIUM CHLOR 0.9% 1000 ML INJ 1,000 ML IV ONE (00:30)
[2017-03-19] MEDS ORDERED: ONDANSETRON HCL 4 MG/2 ML VIAL IVP ONE (00:30)
[2017-03-19 00:51] LABS: AUTOMATED NEUTROPHIL # 8.3 TH/MM3 (1.8-7.7); BASOPHIL # 0.2 TH/MM3 (0-0.2); EOSINOPHIL % 0.1 % (0.0-4.0); HEMATOCRIT 40.2 % (39.0-51.0); LYMPH % 10.8 % (9.0-44.0); LYMPHOCYTE # 1.1 TH/MM3 (1.0-4.8); MEAN CELL VOLUME 87.7 FL (80.0-100.0); MEAN CORPUSCULAR HEMOGLOBIN 30.1 PG (27.0-34.0); MEAN CORPUSCULAR HGB CONC 34.3 % (32.0-36.0); MONO % 4.7 % (0.0-8.0); NEUT % 82.4 % (16.0-70.0); PLATELET COUNT 127 TH/MM3 (150-450); RED BLOOD COUNT 4.59 MIL/MM3 (4.50-5.90); RED CELL DISTRIBUTION WIDTH 13.6 % (11.6-17.2); WHITE BLOOD COUNT 10.1 TH/MM3 (4.0-11.0)
[2017-03-19 00:56] LABS: HEMO FLAGS AUTO DIFF
[2017-03-19 01:11] LABS: ALT (GPT) 18 U/L (12-78); ANION GAP 9 MEQ/L (5-15); AST (GOT) 14 U/L (15-37); BICARBONATE 29.2 MEQ/L (21.0-32.0); BLOOD UREA NITROGEN 10 MG/DL (7-18); CHLORIDE 107 MEQ/L (98-107); GLOMERULAR FILTRATION RATE 85 ML/MIN (>89); POTASSIUM 3.4 MEQ/L (3.5-5.1); SODIUM (NA) 145 MEQ/L (136-145)
[2017-03-19 01:13] LABS: ALKALINE PHOSPHATASE 50 U/L (45-117); TOTAL BILIRUBIN ADULT 0.4 MG/DL (0.2-1.0)
[2017-03-19] MEDS ORDERED: PROM25TA10 PO (01:35)
[2017-03-19 01:36] VITALS: BP 131/89; PULSE 48; RESP 18; O2SAT 95
[2017-03-19 01:49] LABS: PLATELET ESTIMATE SMEAR LOW (NORMAL); PLATELET MORPHOLOGY NORMAL (NORMAL); SCAN/DIFF AUTO DIFF CONFIRMED
== END 2017-03-19 01:58 | disposition home or self-care (01) ==
LOC: NEPE 23:29
DX: R11.2 Nausea with vomiting, unspecified (principal); R10.13 Epigastric pain; F17.210 Nicotine dependence, cigarettes, uncomplicated
CPT/HCPCS: 80053; 83690; 85025; 96374; 99284; J2405; J7030

== ENCOUNTER 2017-06-06 10:05 | Emergency (ER) | payer SELFPAY ==
[~2017-06-06] VITALS: Ht 185.4 cm; Wt 68.0 kg
[~2017-06-06 10:05] MED LIST changes: -MAG-LIQ PO; -MMW SSP; -PRIL20CA9 PO; +PROM25TA10 PO; -SUCR1S PO
[2017-06-06 10:06] VITALS: BP 129/82; PULSE 54; RESP 16; TEMP 97.9; O2SAT 98
[2017-06-06] MEDS ORDERED: SODIUM CHLORIDE 0.9% FLUSH 10 ML FLUSH IV FLUSH PRN (12:00)
[2017-06-06] MEDS ORDERED: METOCLOPRAMIDE HCL 10 MG/2 ML VIAL IV PUSH ONE (12:00)
[2017-06-06] MEDS ORDERED: SODIUM CHLOR 0.9% 1000 ML INJ 1,000 ML IV SCH (12:00)
[2017-06-06] MEDS ORDERED: KETOROLAC TROMETHAMINE 30 MG/ML (IVP) VIAL IV PUSH ONE (12:00)
[2017-06-06] MEDS ORDERED: SODIUM CHLOR 0.9% 1000 ML INJ 1,000 ML IV ONE (12:00)
[2017-06-06] MEDS ORDERED: diphenhydrAMINE HCL 50 MG/ML VIAL IV PUSH ONE (12:00)
--- NOTE | 2017-06-06 12:02 | PD ---
HPI Chief Complaint: Abdominal Pain Time Seen by Provider: 12:02 Travel History International Travel<30 days: No Contact w/Intl Traveler<30days: No Traveled to known affect area: No History of Present Illness HPI 32-year-old male with history of gastritis presents to the emergency department for evaluation of nausea and vomiting with diarrhea since last evening. Patient states he has not drink alcohol since advised him to stop and has decreased his tobacco cigarette smoking. His mom is concerned that he has not been taking his medication as prescribed for his gastritis. Patient states he didn't eat anything different prior to the onset of his symptoms. Reports abdominal pain and cramping. He has felt chilled with uncertain fever. No urinary symptoms. No other symptoms to report. PFSH Past Medical History Asthma: No Blood Disorders: No Heart Rhythm Problems: No Cancer: No Cardiovascular Problems: No High Cholesterol: No Chemotherapy: No Chest Pain: No Congestive Heart Failure: No COPD: No Diabetes: No Diminished Hearing: No Endocrine: No Gastrointestinal Disorders: Yes (ULCERS) GERD: Yes Genitourinary: No Hypertension: No Immune Disorder: No Musculoskeletal: No Neurologic: No Psychiatric: No Reproductive: No Respiratory: No Radiation Therapy: No Sleep Apnea: No Thyroid Disease: No Tetanus Vaccination: > 5 Years Influenza Vaccination: Yes Past Surgical History Surgical History: No Previous Surgery Abdominal Surgery: No Other Surgery: No Social History Alcohol Use: Yes (Drinks 2 days per week/liquor/2 drinks. Last drink Saturday) Tobacco Use: Yes (1/2PPD) Substance Use: Yes (MARIJUANA;quit- 2 days ago. ) Allergies-Medications (Allergen,Severity, Reaction): Coded Allergies: No Known Allergies (Verified , 06/06/17) Reported Meds & Prescriptions Reported Meds & Active Scripts Active Sucralfate 1 Gm Tab 1 Gm PO TID on empty stomach Omeprazole 40 Mg Cap 40 Mg PO DAILY Review of Systems Except as stated in HPI: all other systems reviewed are Neg Physical Exam Narrative GENERAL: Thin male patient, lying in bed in no acute distress. SKIN: Focused skin assessment warm/dry. HEAD: Atraumatic. Normocephalic. EYES: Pupils equal and round. No scleral icterus. No injection or drainage. ENT: No nasal bleeding or discharge. Mucous membranes pink and moist. NECK: Trachea midline. No JVD. CARDIOVASCULAR: Her cardiac rate and rhythm. No murmur appreciated. RESPIRATORY: No accessory muscle use. Clear to auscultation. Breath sounds equal bilaterally. GASTROINTESTINAL: Abdomen soft, nondistended. Tenderness with palpation in epigastrium and right upper quadrant.. Hepatic and splenic margins not palpable. MUSCULOSKELETAL: No obvious deformities. No clubbing. No cyanosis. No edema. NEUROLOGICAL: Awake and alert. No obvious cranial nerve deficits. Motor grossly within normal limits. Normal speech. PSYCHIATRIC: Appropriate mood and affect; insight and judgment normal. Data Data Last Documented VS Vital Signs Date Time Temp Pulse Resp B/P Pulse Ox O2 Delivery O2 Flow Rate FiO2 06/06/17 12:30 99 Room Air 06/06/17 11:50 18 06/06/17 10:06 97.9 54 129/82 Orders Complete Blood Count With Diff (06/06/17 12:00) Comprehensive Metabolic Panel (06/06/17 12:00) Lipase (06/06/17 12:00) Prothrombin Time / Inr (Pt) (06/06/17 12:00) Act Partial Throm Time (Ptt) (06/06/17 12:00) Urinalysis - C+S If Indicated (06/06/17 12:00) Us Abdomen Gallbladder (06/06/17 ) Iv Access Insert/Monitor (06/06/17 12:00) Ecg Monitoring (06/06/17 12:00) Oximetry (06/06/17 12:00) Sodium Chlor 0.9% 1000 Ml Inj (Ns 1000 M (06/06/17 12:00) Sodium Chloride 0.9% Flush (Ns Flush) (06/06/17 12:00) Electrocardiogram (06/06/17 12:00) Ketorolac Inj (Toradol Inj) (06/06/17 12:00) Sodium Chlor 0.9% 1000 Ml Inj (Ns 1000 M (06/06/17 12:00) Metoclopramide Inj (Reglan Inj) (06/06/17 12:00) Diphenhydramine Inj (Benadryl Inj) (06/06/17 12:00) Ct Abd/Pel W Iv Contrast(Rout) (06/06/17 ) Iohexol 350 Inj (Omnipaque 350 Inj) (06/06/17 14:53) Labs Laboratory Tests Test 06/06/17 12:10 White Blood Count 13.1 TH/MM3 Red Blood Count 5.12 MIL/MM3 Hemoglobin 15.5 GM/DL Hematocrit 46.2 % Mean Corpuscular Volume 90.4 FL Mean Corpuscular Hemoglobin 30.3 PG Mean Corpuscular Hemoglobin 33.5 % Concent Red Cell Distribution Width 14.3 % Platelet Count 113 TH/MM3 Mean Platelet Volume 10.0 FL Neutrophils (%) (Auto) 90.5 % Lymphocytes (%) (Auto) 5.4 % Monocytes (%) (Auto) 1.1 % Eosinophils (%) (Auto) 0.0 % Basophils (%) (Auto) 3.0 % Neutrophils # (Auto) 11.8 TH/MM3 Lymphocytes # (Auto) 0.7 TH/MM3 Monocytes # (Auto) 0.1 TH/MM3 Eosinophils # (Auto) 0.0 TH/MM3 Basophils # (Auto) 0.4 TH/MM3 CBC Comment AUTO DIFF Differential Total Cells 100 Counted Neutrophils % (Manual) 91 % Lymphocytes % 7 % Monocytes % 2 % Neutrophils # (Manual) 11.9 TH/MM3 Differential Comment FINAL DIFF MANUAL Platelet Estimate LOW Platelet Morphology Comment NORMAL Red Cell Morphology Comment NORMAL Prothrombin Time 11.3 SEC Prothromb Time International 1.0 RATIO Ratio Activated Partial 26.4 SEC Thromboplast Time Urine Color YELLOW Urine Turbidity CLEAR Urine pH 5.5 Urine Specific [place] 1.028 Urine Protein 30 mg/dL Urine Glucose (UA) NEG mg/dL Urine Ketones TRACE mg/dL Urine Occult Blood NEG Urine Nitrite NEG Urine Bilirubin NEG Urine Urobilinogen LESS THAN 2.0 MG/DL Urine Leukocyte Esterase NEG Urine RBC 3 /hpf Urine WBC 4 /hpf Urine Squamous Epithelial <1 /hpf Cells Urine Mucus MANY /lpf Microscopic Urinalysis Comment CULT NOT INDICATED Sodium Level 140 MEQ/L Potassium Level 4.3 MEQ/L Chloride Level 109 MEQ/L Carbon Dioxide Level 23.8 MEQ/L Anion Gap 7 MEQ/L Blood Urea Nitrogen 11 MG/DL Creatinine 1.32 MG/DL Estimat Glomerular Filtration 77 ML/MIN Rate Random Glucose 117 MG/DL Calcium Level 9.4 MG/DL Total Bilirubin 0.4 MG/DL Aspartate Amino Transf 20 U/L (AST/SGOT) Alanine Aminotransferase 21 U/L (ALT/SGPT) Alkaline Phosphatase 61 U/L Total Protein 8.3 GM/DL Albumin 4.6 GM/DL Lipase 48 U/L [facility] Medical Decision Making Medical Screen Exam Complete: Yes Emergency Medical Condition: Yes Medical Record Reviewed: Yes Differential Diagnosis Abdominal pain versus gastroenteritis versus colitis versus nausea and vomiting Narrative Course 32-year-old male presents to the emergency department for evaluation. Patient appears without distress. He has epigastric and right upper quadrant pain. Lab work is ordered. Ultrasound is completed of the right upper quadrant without any acute findings. CBC is with mild leukocytosis of 13.1 and a neutrophilia of 11.8. CMP is with creatinine 1.32, GFR 77, lipase is 48. Urinalysis is a [id number], trace ketones, many mucus. Patient is treated for pain. Last Impressions Gall Bladder Ultrasound 06/06/17 0000 Signed Impressions: Service Date/Time: , June 06, 2017 12:25 - CONCLUSION: No acute disease. Gamaliel Henson MD Abdomen/Pelvis CT 06/06/17 0000 Signed Impressions: Service Date/Time: , June 06, 2017 14:42 - CONCLUSION: 1. Unremarkable bowel gas pattern with no evidence of obstruction or definite inflammatory change. No oral contrast was given limiting the sensitivity. 2. Unremarkable appearing gallbladder. Evan Cochran MD Findings are discussed with the patient. He is discharged home to follow-up with primary care provider and see gastroenterology evaluation. Patient agrees to return immediately with any acute worsening symptoms. [facility] Point of Care Internal Pos. & Neg. Controls: Passed Fecal Specimen Occult Blood: Negative Diagnosis Primary Impression: Gastroenteritis Referrals: Order Fulfillment Specialist Primary Care Physician Patient Instructions: Gastroenteritis (ED), General Instructions Departure Forms: Tests/Procedures, Work Release Enter return to work date: Jun 10, 2017 Additional Instructions: Avoid acidic and abrasive food Seek gastroenterology evaluation Follow-up with the primary care provider Return immediately with any acute worsening of symptoms Med/Other Pt SpecificInfo: Prescription(s) given Scripts Dicyclomine 10 Mg Cap10 Mg PO TID PRN (Bowel Management) #15 CAP Ref 0 Prov:Maria Moore 06/06/17 Ondansetron Odt (Zofran Odt)4 Mg Tab4 Mg SL Q6HR PRN (Nausea/Vomiting) #15 TAB Ref 0 Prov:Maria Moore 06/06/17 Pantoprazole (Protonix)40 Mg Tab40 Mg PO DAILY #14 TAB Ref 0 Prov:Maria Moore 06/06/17 Disposition: 01 DISCHARGE HOME Condition: Stable Maria Moore Jun 06, 2017 12:02
[2017-06-06 12:30] VITALS: O2SAT 99
[2017-06-06 12:32] LABS: AUTOMATED NEUTROPHIL # 11.8 TH/MM3 (1.8-7.7); BASOPHIL # 0.4 TH/MM3 (0-0.2); HEMATOCRIT 46.2 % (39.0-51.0); LYMPH % 5.4 % (9.0-44.0); LYMPHOCYTE # 0.7 TH/MM3 (1.0-4.8); MEAN CELL VOLUME 90.4 FL (80.0-100.0); MEAN CORPUSCULAR HEMOGLOBIN 30.3 PG (27.0-34.0); MEAN CORPUSCULAR HGB CONC 33.5 % (32.0-36.0); MONO % 1.1 % (0.0-8.0); NEUT % 90.5 % (16.0-70.0); PLATELET COUNT 113 TH/MM3 (150-450); RED BLOOD COUNT 5.12 MIL/MM3 (4.50-5.90); RED CELL DISTRIBUTION WIDTH 14.3 % (11.6-17.2); WHITE BLOOD COUNT 13.1 TH/MM3 (4.0-11.0)
[2017-06-06 12:37] LABS: BLOOD, URINE NEG (NEG); COMMENT (UR) CULT NOT INDICATED; CULTURE IF INDICATED CULT NOT INDICATED; GLUCOSE,URINE NEG (NEG); KETONE, URINE TRACE mg/dL (NEG); MUCUS URINE MANY /lpf (OCC); NITRITE,URINE NEG (NEG); PH, URINE 5.5 (5.0-8.5); SQUAMOUS EPITHELIAL CELL URINE <1 /hpf (0-5); URINE COLOR YELLOW (YELLW/STRAW)
[2017-06-06 12:40] LABS: APTT (PATIENT) 26.4 SEC (24.3-30.1); PROTHROMBIN TIME - PATIENT 11.3 SEC (9.8-11.6)
[2017-06-06 12:41] LABS: HEMO FLAGS AUTO DIFF
--- NOTE | 2017-06-06 12:56 | RADRPT ---
EXAM DATE/TIME: 06/06/2017 12:25 [facility] COMPARISON: No previous studies available for comparison. INDICATIONS : Right upper quadrant pain. MEDICAL HISTORY : Gastroesophageal reflux disease. Ulcer. SURGICAL HISTORY : None. ENCOUNTER: Initial ACUITY: 1 day PAIN SCORE: 3/10 LOCATION: Right upper quadrant MEASUREMENTS: LIVER: 13.8 cm length COMMON DUCT: 3 mm RIGHT KIDNEY: 11.2 x 3.8 x 5.0 cm FINDINGS: LIVER: Normal echotexture without focal lesion or ductal dilatation. COMMON DUCT: No intraluminal mass or stone visualized. GALLBLADDER: Contains no stones, demonstrates no wall thickening or pericholecystic fluid. PANCREAS: The visualized portions are within normal limits. RIGHT KIDNEY: No evidence of hydronephrosis, stone, or mass. CONCLUSION: No acute disease. Gamaliel Henson MD on June 06, 2017 at 12:54 Board Certified Radiologist. This report was verified electronically.
[2017-06-06 13:01] LABS: ALT (GPT) 21 U/L (12-78); ANION GAP 7 MEQ/L (5-15); AST (GOT) 20 U/L (15-37); BICARBONATE 23.8 MEQ/L (21.0-32.0); BLOOD UREA NITROGEN 11 MG/DL (7-18); CHLORIDE 109 MEQ/L (98-107); GLOMERULAR FILTRATION RATE 77 ML/MIN (>89); POTASSIUM 4.3 MEQ/L (3.5-5.1); SODIUM (NA) 140 MEQ/L (136-145)
[2017-06-06 13:04] LABS: ALKALINE PHOSPHATASE 61 U/L (45-117); TOTAL BILIRUBIN ADULT 0.4 MG/DL (0.2-1.0)
[2017-06-06 13:15] LABS: NEUTROPHIL # MANUAL DIFF 11.9 TH/MM3 (1.8-7.7); PLATELET ESTIMATE SMEAR LOW (NORMAL); PLATELET MORPHOLOGY NORMAL (NORMAL); POLYS (SEG NEUTROPHILS) 91 % (16-70); SCAN/DIFF FINAL DIFF MANUAL; WBC DIFF SAMPLE 100
[2017-06-06] MEDS ORDERED: IOHEXOL 350 MG/ML 10 ML VIAL (for RAD DIAG) IV ONE (14:53)
--- NOTE | 2017-06-06 15:12 | RADRPT ---
EXAM DATE/TIME: 06/06/2017 14:42 [facility] COMPARISON: CT ABDOMEN & PELVIS W CONTRAST, December 11, 2016, 11:04. INDICATIONS : Abdominal pain with nausea, vomiting and diarrhea since last night. IV CONTRAST: 83 cc Omnipaque 350 (iohexol) IV ORAL CONTRAST: No oral contrast ingested. RADIATION DOSE: 4.72 CTDIvol (mGy) MEDICAL HISTORY : None SURGICAL HISTORY : None. ENCOUNTER: Initial ACUITY: 1 day PAIN SCALE: 3/10 LOCATION: abdomen/pelvis TECHNIQUE: Volumetric scanning of the abdomen and pelvis was performed. Using automated exposure control and ad justment of the mA and/or kV according to patient size, radiation dose was kept as low as reasonably achievable to obtain optimal diagnostic quality images. DICOM format image data is available electro nically for review and comparison. FINDINGS: LOWER LUNGS: The visualized lower lungs are clear. LIVER: Homogeneous density without lesion. There is no dilation of the biliary tree. No calcified gallston es. SPLEEN: Normal size without lesion. PANCREAS: Within normal limits. KIDNEYS: Normal in size and shape. There is no mass, stone or hydronephrosis. ADRENAL GLANDS: Within normal limits. VASCULAR: There is no aortic aneurysm. BOWEL/MESENTERY: No oral contrast was given limiting the sensitivity of the exam. The stomach, small bowel, and colon demonstrate no acute abnormality. There is no free intraperitoneal air or fluid. ABDOMINAL WALL: Within normal limits. RETROPERITONEUM: There is no lymphadenopathy. BLADDER: No wall thickening or mass. REPRODUCTIVE: Within normal limits. INGUINAL: There is no lymphadenopathy or hernia. MUSCULOSKELETAL: Within normal limits for patient age. CONCLUSION: 1. Unremarkable bowel gas pattern with no evidence of obstruction or definite inflammatory change. No oral contrast was given limiting the sensitivity. 2. Unremarkable appearing gallbladder. Evan Cochran MD on June 06, 2017 at 15:08 Board Certified Radiologist. This report was verified electronically.
[2017-06-06] MEDS ORDERED: PROT40TA PO (15:31)
[2017-06-06] MEDS ORDERED: ZOFR4TAB3 SL (15:31)
[2017-06-06] MEDS ORDERED: DICY10CA12 PO (15:31)
--- NOTE | 2017-06-07 09:17 | EKG ---
Date Performed: 06/06/2017 Time Performed: 12:21:08 PTAGE: 32 years EKG: SINUS BRADYCARDIA WITH SINUS ARRHYTHMIA MINIMAL VOLTAGE CRITERIA FOR LVH, CONSIDER NORMAL V [address] ST ELEVATION, PROBABLY EARLY REPOLARIZATION BORDERLINE ECG Compared to prior tracing no signif icant change PREVIOUS TRACING : 03/18/2017 02.19 DOCTOR: Stuart Singh Interpretating Date/Time 06/07/2017 09:16:02
== END 2017-06-06 16:10 | disposition home or self-care (01) ==
LOC: NEPD 10:05
DX: K52.9 Noninfective gastroenteritis and colitis, unspecified (principal); D72.829 Elevated white blood cell count, unspecified; K21.9 Gastro-esophageal reflux disease without esophagitis; R00.1 Bradycardia, unspecified; I49.8 Other specified cardiac arrhythmias; F17.200 Nicotine dependence, unspecified, uncomplicated
CPT/HCPCS: 74177; 76705; 80053; 81001; 83690; 85007; 85027; 85610; 85730; 93005; 96374; 96375; 99285; J1200; J1885; J2765; J7030; Q9967